=== PATIENT | male | born 1940 | race Caucasian/White ===

== ENCOUNTER 2018-03-22 19:26 | Inpatient (IN) | payer MEDICARE, BC ==
[2018-03-22] MEDS ORDERED: AZITHROMYCIN 500 MG in SODIUM CHLORIDE 0.9% 250 ML IVPB STA (20:18)
[2018-03-22] MEDS ORDERED: PNEUMONIA PROTOCOL UTILIZED 1 EACH MISC PO PRN (20:18)
--- NOTE | 2018-03-22 20:18 | ED ---
General Adult HPI - General Chief complaint: Shortness of Breath Stated complaint: sob Time Seen by Provider: 03/22/18 19:40 Source: patient, EMS, RN notes reviewed, old records reviewed Mode of arrival: EMS Limitations: no limitations - History of Present Illness Initial comments: This is a 77-year-old male the ER for evaluation. Patient accepted in transfer for evaluation regarding blood in stool, elevated INR, A. fib with RVR, and pneumonia. Patient is continued shortness of breath here in the emergency room. Denies any pain no chest pain. No acute distress. Patient's transfer from [facility] for inpatient admission - Related Data Home Medications Medication Instructions Recorded Confirmed Acarbose [Precose] 25 mg PO TID 03/22/18 03/22/18 Carvedilol [Coreg] 12.5 mg PO BID 03/22/18 03/22/18 Dorzolamide-Timolol 2%/0.5% 1 drop LEFT EYE BID 03/22/18 03/22/18 [dorzolamide-Timolol 2%/0.5%] Doxazosin Mesylate 2 mg PO HS 03/22/18 03/22/18 Ergocalciferol (Vitamin D2) 50,000 unit PO Q15D 03/22/18 03/22/18 [Vitamin D2] Ferrous Sulfate [Feosol] 325 mg PO DAILY 03/22/18 03/22/18 Furosemide [Lasix] 40 mg PO BID 03/22/18 03/22/18 Insulin Glargine [Lantus] 0 unit SQ HS 03/22/18 03/22/18 Latanoprost [Xalatan 0.005%] 1 drop BOTH EYES HS 03/22/18 03/22/18 Timolol 0.5% Ophth Soln [Timoptic 1 drop BOTH EYES BID 03/22/18 03/22/18 0.5% Ophth Soln] Warfarin Sodium [Coumadin] 5 mg PO HS 03/22/18 03/22/18 cloNIDine HCL [Catapres] 0.2 mg PO BID 03/22/18 03/22/18 glipiZIDE [Glucotrol] 10 mg PO AC-BID 03/22/18 03/22/18 hydrALAZINE HCL [Apresoline] 25 mg PO TID 03/22/18 03/22/18 Allergies Allergy/AdvReac Type Severity Reaction Status Date / Time No Known Allergies Allergy Verified 03/22/18 19:49 Review of Systems ROS Statement: Those systems with pertinent positive or pertinent negative responses have been documented in the HPI. ROS Other: All systems not noted in ROS Statement are negative. Past Medical History Past Medical History: Atrial Fibrillation, Heart Failure, Diabetes Mellitus, Hypertension Additional Past Medical History / Comment(s): cataract History of Any Multi-Drug Resistant Organisms: None Reported Past Surgical History: Tonsillectomy Additional Past Surgical History / Comment(s): colonoscopy Past Psychological History: No Psychological Hx Reported Smoking Status: Never smoker Past Alcohol Use History: Rare Past Drug Use History: None Reported General Exam Limitations: no limitations General appearance: alert, in no apparent distress Head exam: Present: atraumatic, normocephalic, normal inspection Eye exam: Present: normal appearance, PERRL, EOMI. Absent: scleral icterus, conjunctival injection, periorbital swelling ENT exam: Present: normal exam, mucous membranes moist Neck exam: Present: normal inspection. Absent: tenderness, meningismus, lymphadenopathy Respiratory exam: Present: normal lung sounds bilaterally. Absent: respiratory distress, wheezes, rales, rhonchi, stridor Cardiovascular Exam: Present: tachycardia, irregular rhythm, normal heart sounds. Absent: systolic murmur, diastolic murmur, rubs, gallop, clicks GI/Abdominal exam: Present: soft, normal bowel sounds. Absent: distended, tenderness, guarding, rebound, rigid Extremities exam: Present: normal inspection, full ROM, normal capillary refill. Absent: tenderness, pedal edema, joint swelling, calf tenderness Back exam: Present: normal inspection Neurological exam: Present: alert, oriented X3, CN II-XII intact Psychiatric exam: Present: normal affect, normal mood Skin exam: Present: warm, dry, intact, normal color. Absent: rash Course Vital Signs 03/22/18 19:32 Temperature 97.9 F Pulse Rate 112 H Respiratory 24 Rate Blood Pressure 147/106 O2 Sat by Pulse 97 Oximetry - Reevaluation(s) Reevaluation #1: 03/22/18 20:17 Transferring paperwork is thoroughly reviewed Medical Decision Making - Medical Decision Making 67 male the ER for evaluation. Patient is A. fib with RVR Coumadin anticoagulation, positive GI bleed, shortness of breath with cough and congestion, positive pneumonia Disposition Clinical Impression: Community acquired pneumonia, Coagulopathy, Coumadin toxicity, GIB ( gastrointestinal bleeding), Atrial fibrillation with RVR Disposition: ADMITTED IP TO THIS HOSP Condition: Fair Is patient prescribed a controlled substance at d/c from ED?: No Referrals: Ronald Malin MD [Primary Care Provider] - 1-2 days
[2018-03-22] MEDS ORDERED: DILTIAZEM 50 MG in SODIUM CHLORIDE 0.9% 40 ML IV ONE (20:20)
[2018-03-22] MEDS: SODIUM CHLORIDE 0.9% 1,000 ML IV SCH (20:59)
[2018-03-23] MEDS ORDERED: FUROSEMIDE 10 MG/ML 4 ML VIAL IV STA ×2 (00:32→16:25)
[2018-03-23] MEDS ORDERED: FUROSEMIDE 10 MG/ML 4 ML VIAL ONE (00:34)
[2018-03-23] MEDS ORDERED: IPRATROPIUM-ALBUTEROL 3 ML NEB INHALATION PRN (01:47)
[2018-03-23 06:26] LABS: Glucose,Whole Blood 124 mg/dL (75-99)
[2018-03-23 06:44] LABS: HGB 10.8 gm/dL (13.0-17.5); MCH 29.5 pg (25.0-35.0); MCHC 30.8 g/dL (31.0-37.0); MCV 95.9 fL (80.0-100.0); Platelet Count 128 k/uL (150-450); RBC 3.65 m/uL (4.30-5.90); RDW 14.2 % (11.5-15.5); WBC 7.3 k/uL (3.8-10.6)
[2018-03-23 06:51] LABS: INR 4.7 (<1.2); Prothrombin Time 42.5 sec (9.0-12.0)
[2018-03-23 06:57] LABS: Calcium 7.9 mg/dL (8.4-10.2); Magnesium 2.3 mg/dL (1.6-2.3); Potassium 3.5 mmol/L (3.5-5.1)
[2018-03-23] MEDS: SODIUM CHLORIDE 0.9% 1,000 ML IV SCH (07:42)
[2018-03-23] MEDS: INSULIN ASPART 100 UNIT/ML 1 ML 10 ML VIAL SQ SCH ×4 (07:42→21:10)
[2018-03-23] MEDS: IPRATROPIUM-ALBUTEROL 3 ML NEB INHALATION SCH ×4 (08:52→20:21)
[2018-03-23] MEDS ORDERED: cefTRIAXone IN SWFI 1,000 MG/10 ML SYRINGE IVP SCH (09:00)
[2018-03-23] MEDS ORDERED: AZITHROMYCIN 500 MG in SODIUM CHLORIDE 0.9% 250 ML IVPB SCH (09:00)
--- NOTE | 2018-03-23 11:34 | ECHOF ---
Referral Reason:LV FUNCTION MEASUREMENTS -------- HEIGHT: 175.3 cm WEIGHT: 131.5 kg BP: 154/107 RVIDd: 4.0 cm (< 3.3) IVSd: 1.5 cm (0.6 - 1.1) LVIDd: 4.9 cm (3.9 - 5.3) LVPWd: 1.4 cm (0.6 - 1.1) IVSs: 1.9 cm LVIDs: 4.1 cm LVPWs: 1.7 cm LA Diam: 4.2 cm (2.7 - 3.8) LAESV Index (A-L): 28.21 ml/m Ao Diam: 3.4 cm (2.0 - 3.7) AV Cusp: 2.2 cm (1.5 - 2.6) MV EXCURSION: 14.382 mm (> 18.000) MV EF SLOPE: 129 mm/s (70 - 150) EPSS: 1.4 cm RAP: 5.00 mmHg RVSP: 38.37 mmHg FINDINGS -------- This was a technically difficult study with suboptimal views. The left ventricular size is normal. There is moderate concentric left ventricular hypertrophy. O verall left ventricular systolic function is moderate-severely impaired with, an EF between 30 - 35 % . The right ventricle is moderately enlarged. The left atrium is mildly dilated. The right atrium is normal in size. 3 ml of Lumason was utilized for enhancement of images. There is mild aortic valve sclerosis. Mild mitral annular calcification present. Mild mitral regurgitation is present. Mild tricuspid regurgitation present. There is mild pulmonary hypertension. The right ventricular systolic pressure, as measured by Doppler, is 38.37mmHg. There is no pulmonic regurgitation present. The aortic root size is normal. Normal inferior vena cava with normal inspiratory collapse consistent with estimated right atrial pre ssure of 5 mmHg. The inferior vena cava is mildly dilated. There is no pericardial effusion. CONCLUSIONS -------- 1. This was a technically difficult study with suboptimal views. 2. The left ventricular size is normal. 3. There is moderate concentric left ventricular hypertrophy. 4. Overall left ventricular systolic function is moderate-severely impaired with, an EF between 30 - 35 %. 5. The right ventricle is moderately enlarged. 6. The left atrium is mildly dilated. 7. The right atrium is normal in size. 8. 3 ml of Lumason was utilized for enhancement of images. 9. There is mild aortic valve sclerosis. 10. Mild mitral annular calcification present. 11. Mild mitral regurgitation is present. 12. Mild tricuspid regurgitation present. 13. There is mild pulmonary hypertension. 14. The right ventricular systolic pressure, as measured by Doppler, is 38.37mmHg. 15. There is no pulmonic regurgitation present. 16. The aortic root size is normal. 17. Normal inferior vena cava with normal inspiratory collapse consistent with estimated right atrial pressure of 5 mmHg. 18. The inferior vena cava is mildly dilated. 19. There is no pericardial effusion. PODIATRIC MEDICINE PROFESSOR: Yenny Carrillo RDCS
[2018-03-23 11:37] LABS: Glucose,Whole Blood 108 mg/dL (75-99)
--- NOTE | 2018-03-23 12:06 | XR ---
EXAMINATION TYPE: XR chest 1V DATE OF EXAM: 03/23/2018 CLINICAL HISTORY: CHF and pneumonia progress study. TECHNIQUE: Single AP portable frontal view of the chest is obtained. COMPARISON: Outside Chest x-ray from one day earlier and older study May 01, 2010. FINDINGS: There is redemonstration of mild cardiomegaly with suspected mild central vascular congest ion. There is poor visualization of left hemidiaphragm suggesting atelectasis and/or infiltrate at th is level. No pneumothorax is seen. Suspect tiny bilateral pleural effusions. There is atherosclerotic and ectatic thoracic aorta identified. Osseous structures are demineralized. IMPRESSION: Overall stable findings, cardiomegaly with mild central vascular congestion and likely tiny bilateral pleural effusions with patchy left basilar atelectasis and/or infiltrate all redemonst rated.
[2018-03-23 14:44] LABS: Hemoglobin A1C 8.5 % (4.0-6.0)
--- NOTE | 2018-03-23 14:56 | P.CRDCN ---
History of Present Illness Consult date: 03/23/18 Requesting physician: Rachell Perera Consult reason: atrial fibrillation History of present illness: This is a 77-year-old gentleman who follows with Dr. Jain in the office. He was transferred here for [facility], apparently the patient presented there with symptoms of shortness of breath with persistent productive cough. He has a known history of chronic persistent atrial fibrillation on Coumadin for anticoagulation, diabetes, hypertension, lipidemia, patient there was noted to be in atrial fibrillation with rapid ventricular response, he was started on a Cardizem drip and transferred here. His INR was also noted to be significantly elevated. Chest x-ray suggested a left lower lobe pneumonia. White blood cell count 8.6, hemoglobin 11.5, platelet count 102, sodium 137, potassium 3.7, BUN 58, creatinine 3.7. INR 5.2 these were the labs that were drawn at [facility]. EKG on arrival here showed atrial fibrillation with a rapid ventricular response. Hemoglobin here 10.8, platelet count 128. INR 4.7, sodium 143, potassium 3.5, BUN 55, creatinine 3.8. Magnesium level II.3, BNP 29 ,100. Influenza A and B were negative. Blood pressure 132/90 with a heart rate in the low 1 teens. 99% on room air. Chest x-ray on arrival here showed a overall stable findings, cardiomegaly with mild central vascular congestion and likely tiny bilateral pleural effusions. A cardiogram with Doppler study was performed which revealed an ejection fraction of 30-35%. According to Dr. Ennis's office note, echo performed in 2016 reported to have a normal left ventricular systolic function. Past Medical History Past Medical History: Atrial Fibrillation, Heart Failure, Diabetes Mellitus, Hypertension Additional Past Medical History / Comment(s): cataract History of Any Multi-Drug Resistant Organisms: None Reported Past Surgical History: Tonsillectomy Additional Past Surgical History / Comment(s): colonoscopy, skin ca Past Anesthesia/Blood Transfusion Reactions: No Reported Reaction Past Psychological History: No Psychological Hx Reported Smoking Status: Never smoker Past Alcohol Use History: Rare Past Drug Use History: None Reported - Past Family History Father Family Medical History: Cancer Additional Family Medical History / Comment(s): lung Mother Family Medical History: Cancer Additional Family Medical History / Comment(s): ovarian Medications and Allergies Home Medications Medication Instructions Recorded Confirmed Type Acarbose [Precose] 25 mg PO TID 03/22/18 03/22/18 History Carvedilol [Coreg] 12.5 mg PO BID 03/22/18 03/22/18 History Dorzolamide-Timolol 2%/0.5% 1 drop LEFT EYE BID 03/22/18 03/22/18 History [dorzolamide-Timolol 2%/0.5%] Doxazosin Mesylate 2 mg PO HS 03/22/18 03/22/18 History Ergocalciferol (Vitamin D2) 50,000 unit PO Q15D 03/22/18 03/22/18 History [Vitamin D2] Ferrous Sulfate [Feosol] 325 mg PO DAILY 03/22/18 03/22/18 History Furosemide [Lasix] 40 mg PO BID 03/22/18 03/22/18 History Insulin Glargine [Lantus] 0 unit SQ HS 03/22/18 03/22/18 History Latanoprost [Xalatan 0.005%] 1 drop BOTH EYES HS 03/22/18 03/22/18 History Timolol 0.5% Ophth Soln [Timoptic 1 drop BOTH EYES BID 03/22/18 03/22/18 History 0.5% Ophth Soln] Warfarin Sodium [Coumadin] 5 mg PO HS 03/22/18 03/22/18 History cloNIDine HCL [Catapres] 0.2 mg PO BID 03/22/18 03/22/18 History glipiZIDE [Glucotrol] 10 mg PO AC-BID 03/22/18 03/22/18 History hydrALAZINE HCL [Apresoline] 25 mg PO TID 03/22/18 03/22/18 History Allergies Allergy/AdvReac Type Severity Reaction Status Date / Time No Known Allergies Allergy Verified 03/22/18 19:49 Physical Exam Vitals: Vital Signs Temp Pulse Pulse Resp BP BP Pulse Ox 03/23/18 12:12 88 03/23/18 12:02 84 03/23/18 11:01 97.7 F 117 H 20 133/82 99 03/23/18 09:10 88 03/23/18 08:57 80 98 03/23/18 08:31 98.3 F 83 22 125/79 98 03/23/18 08:00 83 22 03/23/18 04:00 96.8 F L 88 24 154/107 98 03/23/18 01:10 97.7 F 111 H 24 130/81 96 03/22/18 22:59 98.5 F 03/22/18 22:33 105 H 18 117/71 98 03/22/18 21:31 110 H 20 151/99 99 03/22/18 21:03 98.3 F 136/87 03/22/18 21:02 20 03/22/18 21:01 105 H 20 147/104 97 03/22/18 20:57 97.7 F 111 H 24 130/81 96 03/22/18 19:32 97.9 F 112 H 24 147/106 97 Intake and Output 03/22/18 03/23/18 03/23/18 22:59 06:59 14:59 Other: Voiding Method Urinal Urinal Weight 131.542 kg 135 kg 135 kg PHYSICAL EXAMINATION: HEENT: Head is atraumatic, normocephalic. Pupils equal, round. Neck is supple. There is elevated jugular venous pressure. HEART EXAMINATION: Heart S1 and S2 irregularly irregular CHEST EXAMINATION: Lungs reveal diminished air entry to bilateral bases with rales noted to bilateral bases as well. ABDOMEN: Soft, nontender. Bowel sounds are heard. No organomegaly noted. EXTREMITIES: 2+ peripheral pulses with evidence of peripheral edema and no calf tenderness noted. NEUROLOGIC patient is awake, alert and oriented -3. . Results 03/23/18 05:36 03/23/18 05:36 Coagulation 03/23/18 Range/Units 05:36 PT 42.5 H (9.0-12.0) sec CBC 03/23/18 Range/Units 05:36 WBC 7.3 (3.8-10.6) k/uL RBC 3.65 L (4.30-5.90) m/uL Hgb 10.8 L (13.0-17.5) gm/dL Hct 35.0 L (39.0-53.0) % Plt Count 128 L (150-450) k/uL Comprehensive Metabolic Panel 03/23/18 Range/Units 05:36 Sodium 143 (137-145) mmol/L Potassium 3.5 (3.5-5.1) mmol/L Chloride 110 H (98-107) mmol/L Carbon Dioxide 18 L (22-30) mmol/L BUN 55 H (9-20) mg/dL Creatinine 3.80 H (0.66-1.25) mg/dL Glucose 118 H (74-99) mg/dL Calcium 7.9 L (8.4-10.2) mg/dL Current Medications Generic Name Dose Route Start Last Admin Trade Name Freq PRN Reason Stop Dose Admin Albuterol/Ipratropium 3 ml 03/23/18 08:00 03/23/18 12:02 Duoneb 0.5 Mg-3 Mg/3 Ml Soln INHALATION 3 ml RT-QID ALBA Administration Albuterol/Ipratropium 3 ml 03/23/18 01:47 Duoneb 0.5 Mg-3 Mg/3 Ml Soln INHALATION RT-Q2H PRN Shortness Of Breath Or Wheezing Carvedilol 25 mg 03/23/18 17:30 Coreg PO AC-BID [facility] Ceftriaxone Sodium 1,000 mg 03/24/18 09:00 Rocephin IVP Q24HR [facility] Dorzolamide/Timolol 1 drops 03/23/18 21:00 Cosopt LEFT EYE BID [facility] Doxazosin Mesylate 2 mg 03/23/18 21:00 Cardura PO HS [facility] Ferrous Sulfate 325 mg 03/24/18 09:00 Feosol PO DAILY [facility] Hydralazine HCl 25 mg 03/23/18 16:00 Apresoline PO TID [facility] Insulin Aspart 0 unit 03/23/18 07:30 03/23/18 12:13 Novolog SQ Not Given ACHS [facility] Protocol Latanoprost 1 drops 03/23/18 21:00 Xalatan 0.005% BOTH EYES [facility] Miscellaneous Information 1 each 03/22/18 20:18 Pneumonia Protocol Utilized PO ONCE PRN Per Protocol Timolol Maleate 1 drops 03/23/18 21:00 Timoptic BOTH EYES BID [facility] Intake and Output 03/22/18 03/23/18 03/23/18 22:59 06:59 14:59 Other: Voiding Method Urinal Urinal Weight 131.542 kg 135 kg 135 kg Patient Weight 03/24/18 06:59 Weight 135 kg 03/23/18 05:36 03/23/18 05:36 EKG Interpretations (text) EKG shows atrial fibrillation with a rapid ventricular response. Assessment and Plan Plan: Assessment and plan #1 symptoms of progressively worsening shortness of breath, productive cough of yellow sputum. Combination of possible bronchitis/pneumonia and congestive heart failure, systolic acute on chronic. BNP level 29,100. Influenza A and B- . #2 atrial fibrillation with a rapid ventricular response #3 history of chronic persistent atrial fibrillation on Coumadin for anticoagulation #4 elevated INR, 4.7 on arrival here. Coumadin on hold #5 acute on chronic renal insufficiency, creatinine 3.8. #6 diabetes #7 hypertension #8 hyperlipidemia Plan We will start the patient on 40 mg of IV Lasix twice a day, discontinue Cardizem drip as the LV function is noted to be reduced. We will discontinue the Coreg and start the patient on metoprolol for more optimal heart rate control. We will hold off on any addition of angiotensin jose at this time or DYLAN inhibitor because of the renal function. Optimize rate control, diuresis the patient, check lytes BUN and creatinine in the morning. We will also check to see if patient has coverage for one of the newer anti-coagulants so he can come off of the Coumadin. Further recommendations to follow. DNP note has been reviewed, I agree with a documented findings and plan of care. Patient was seen and examined.
[2018-03-23] MEDS ORDERED: FUROSEMIDE 10 MG/ML 4 ML VIAL IV SCH (15:00)
--- NOTE | 2018-03-23 15:42 | CONS ---
CONSULTATION REASON FOR CONSULT: Renal failure. HISTORY OF PRESENT ILLNESS: The patient is a 77-year-old male who has chronic kidney disease and follows with a lpn care manager out of [place], Dr. Jarrod Vargas. The patient believes he is at stage IV to stage V. He is not aware of his baseline renal function. He states he was admitted to the hospital with shortness of breath. He was found to be in atrial fibrillation with RVR. Serum creatinine is 3.8 mg/dL. We do not have any previous labs for comparison. His GFR is 70 . The patient denies use of any nonsteroidal anti- inflammatory agents prior to admission. He states he has had good urine output. He has been voiding in the urinal. No fevers, chills, nausea, vomiting. No abdominal pain. PAST MEDICAL HISTORY: Chronic kidney disease, hypertension, type 2 diabetes, coronary artery disease, history of atrial fibrillation. PAST SURGICAL HISTORY: Tonsillectomy, colonoscopy, cataract surgery. SOCIAL HISTORY: Negative for smoking, drug abuse or alcohol abuse. ALLERGIES: None. MEDICATIONS: Medications at home included acarbose, Coreg, vitamin D, iron, Lasix, insulin, Coumadin, clonidine, Glucotrol, hydralazine. REVIEW OF SYSTEMS: As per HPI. Other systems negative. PHYSICAL EXAMINATION: Patient is comfortable, awake, alert, oriented x3, not in any acute distress. Blood pressure is 133/82, heart rate 84 per minute. He is afebrile. Examination of the heart: S1, S2. Examination lungs: Bilateral breath sounds are heard. Abdomen is soft, obese, nontender. Exam of the lower extremity shows edema 1+ bilaterally. [employer]ING [employer]S SUPERVISOR exam is grossly intact. LAB: Show sodium 140, potassium 3.5, chloride 110, CO2 is 18, BUN 55, serum creatinine 3.8, hemoglobin 10.8 g/dL. ASSESSMENT: 1. Chronic kidney disease, NKF stage IV to V according to the patient. He follows with a lpn care manager in [place]. We do not have his baseline renal function available at this time. 2. Atrial fibrillation with RVR. Heart rate about 117 per minute currently, the patient is feeling better. 3. Possible pneumonia status post antibiotics. Currently maintained on Rocephin. 4. Hypertension. Blood pressure is fairly well controlled. 5. Metabolic acidosis secondary to renal failure. 6. Mild volume overload. PLAN: Continue off of IV fluids. Repeat labs in a.m. We will try to obtain baseline renal function. Currently patient is not on any nephrotoxic agents. May continue with the Rocephin for now. The patient has already received IV Lasix x1. We can repeat the IV diuretics tomorrow if his respiratory status worsens. The patient was maintained on 40 mg p.o. b.i.d. at home and we can resume that tomorrow. Plan to continue off of IV fluids. Continue current antihypertensive medications. Add sodium bicarb. Resume oral Lasix. Patient will need to follow up as outpatient with his lpn care manager out of [place]. Thank you for this consultation. We will continue to follow the patient with you during his hospitalization. ELENI / GAIL: [id number] /
[2018-03-23] MEDS ORDERED: METOPROLOL TARTRATE 50 MG TAB PO STA (16:13)
--- NOTE | 2018-03-23 16:19 | P.HPIM ---
History of Present Illness 77-year-old gentleman transferred here for [facility], apparently the patient presented there with symptoms of shortness of breath with persistent productive cough with yellow sputum production, patient does have a orthopnea and denied any significant history of paroxysmal nocturnal dyspnea. He has a known history of chronic persistent atrial fibrillation on Coumadin for anticoagulation, was noted to be in atrial fibrillation with rapid ventricular response, he was started on a Cardizem drip and transferred here. Patient chest x-ray is suspicious for pneumonia or pulmonary edema I reviewed the chest x-ray I believe patient has pulmonary edema rather pneumonia with suspicion is low for pneumonia. Patient doesn't have any leukocytosis denied any fever, patient clinically does not appear to have pneumonia and medics will be discontinued. Patient's INR is supratherapeutic. Patient had ejection fraction of 30-35%. Patient was started on Lasix dose of which need to be increased because of poor renal function patient appears to have chronic kidney disease stage 4-5. Patient shortness of breath actually improved since yesterday. Review of Systems REVIEW OF SYSTEMS: CONSTITUTIONAL: No fever, no malaise, no fatigue. HEENT: No recent visual problems or hearing problems. Denied any sore throat. CARDIOVASCULAR: No chest pain. PULMONARY: no hemoptysis. GASTROINTESTINAL: No diarrhea, no nausea, no vomiting, no abdominal pain. Normoactive bowel sounds. NEUROLOGICAL: No headaches, no weakness, no numbness. HEMATOLOGICAL: Denies any bleeding or petechiae. GENITOURINARY: Denies any burning micturition, frequency, or urgency. MUSCULOSKELETAL/RHEUMATOLOGICAL: Denies any joint pain, swelling, or any muscle pain. ENDOCRINE: Denies any polyuria or polydipsia. The rest of the 14-point review of systems is negative. Past Medical History Past Medical History: Atrial Fibrillation, Heart Failure, Diabetes Mellitus, Hypertension Additional Past Medical History / Comment(s): cataract History of Any Multi-Drug Resistant Organisms: None Reported Past Surgical History: Tonsillectomy Additional Past Surgical History / Comment(s): colonoscopy, skin ca Past Anesthesia/Blood Transfusion Reactions: No Reported Reaction Past Psychological History: No Psychological Hx Reported Smoking Status: Never smoker Past Alcohol Use History: Rare Past Drug Use History: None Reported - Past Family History Father Family Medical History: Cancer Additional Family Medical History / Comment(s): lung Mother Family Medical History: Cancer Additional Family Medical History / Comment(s): ovarian Medications and Allergies Home Medications Medication Instructions Recorded Confirmed Type Acarbose [Precose] 25 mg PO TID 03/22/18 03/22/18 History Carvedilol [Coreg] 12.5 mg PO BID 03/22/18 03/22/18 History Dorzolamide-Timolol 2%/0.5% 1 drop LEFT EYE BID 03/22/18 03/22/18 History [dorzolamide-Timolol 2%/0.5%] Doxazosin Mesylate 2 mg PO HS 03/22/18 03/22/18 History Ergocalciferol (Vitamin D2) 50,000 unit PO Q15D 03/22/18 03/22/18 History [Vitamin D2] Ferrous Sulfate [Feosol] 325 mg PO DAILY 03/22/18 03/22/18 History Furosemide [Lasix] 40 mg PO BID 03/22/18 03/22/18 History Insulin Glargine [Lantus] 0 unit SQ HS 03/22/18 03/22/18 History Latanoprost [Xalatan 0.005%] 1 drop BOTH EYES HS 03/22/18 03/22/18 History Timolol 0.5% Ophth Soln [Timoptic 1 drop BOTH EYES BID 03/22/18 03/22/18 History 0.5% Ophth Soln] Warfarin Sodium [Coumadin] 5 mg PO HS 03/22/18 03/22/18 History cloNIDine HCL [Catapres] 0.2 mg PO BID 03/22/18 03/22/18 History glipiZIDE [Glucotrol] 10 mg PO AC-BID 03/22/18 03/22/18 History hydrALAZINE HCL [Apresoline] 25 mg PO TID 03/22/18 03/22/18 History Allergies Allergy/AdvReac Type Severity Reaction Status Date / Time No Known Allergies Allergy Verified 03/22/18 19:49 Physical Exam Vitals: Vital Signs Temp Pulse Pulse Resp BP BP Pulse Ox 03/23/18 15:47 96.9 F L 104 H 20 130/68 99 03/23/18 12:12 88 03/23/18 12:02 84 03/23/18 11:01 97.7 F 117 H 20 133/82 99 03/23/18 09:10 88 03/23/18 08:57 80 98 03/23/18 08:31 98.3 F 83 22 125/79 98 03/23/18 08:00 83 22 03/23/18 04:00 96.8 F L 88 24 154/107 98 03/23/18 01:10 97.7 F 111 H 24 130/81 96 03/22/18 22:59 98.5 F 03/22/18 22:33 105 H 18 117/71 98 03/22/18 21:31 110 H 20 151/99 99 03/22/18 21:03 98.3 F 136/87 03/22/18 21:02 20 03/22/18 21:01 105 H 20 147/104 97 03/22/18 20:57 97.7 F 111 H 24 130/81 96 03/22/18 19:32 97.9 F 112 H 24 147/106 97 Intake and Output 03/23/18 03/23/18 03/23/18 06:59 14:59 22:59 Intake Total 420 Balance 420 Intake: Oral 420 Other: Voiding Method Urinal Urinal # Voids 1 Weight 135 kg 135 kg PHYSICAL EXAMINATION: GENERAL: The patient is alert and oriented x3, not in any acute distress. Well developed, well nourished. HEENT: Pupils are round and equally reacting to light. EOMI. No scleral icterus. No conjunctival pallor. Normocephalic, atraumatic. No pharyngeal erythema. No thyromegaly. CARDIOVASCULAR: S1 and S2 present. No murmurs. There is S3, elevated JVD and irregularly irregular rhythm PULMONARY: Chest is clear to auscultation, no wheezing or crackles. ABDOMEN: Soft, nontender, nondistended, normoactive bowel sounds. No palpable organomegaly. MUSCULOSKELETAL: No joint swelling or deformity. EXTREMITIES: No cyanosis, clubbing, does have pitting pedal edema. NEUROLOGICAL: Gross neurological examination did not reveal any focal deficits. SKIN: No rashes. Results CBC & Chem 7: 03/23/18 05:36 03/23/18 05:36 Labs: Abnormal Lab Results - Last 24 Hours (Table) 03/23/18 03/23/18 03/23/18 Range/Units 05:36 05:36 05:36 RBC 3.65 L (4.30-5.90) m/uL Hgb 10.8 L (13.0-17.5) gm/dL Hct 35.0 L (39.0-53.0) % MCHC 30.8 L (31.0-37.0) g/dL Plt Count 128 L (150-450) k/uL PT 42.5 H (9.0-12.0) sec INR 4.7 H (<1.2) Chloride 110 H (98-107) mmol/L Carbon Dioxide 18 L (22-30) mmol/L BUN 55 H (9-20) mg/dL Creatinine 3.80 H (0.66-1.25) mg/dL Glucose 118 H (74-99) mg/dL POC Glucose (mg/dL) (75-99) mg/dL Hemoglobin A1c (4.0-6.0) % Calcium 7.9 L (8.4-10.2) mg/dL 03/23/18 03/23/18 03/23/18 Range/Units 05:36 06:24 11:35 RBC (4.30-5.90) m/uL Hgb (13.0-17.5) gm/dL Hct (39.0-53.0) % MCHC (31.0-37.0) g/dL Plt Count (150-450) k/uL PT (9.0-12.0) sec INR (<1.2) Chloride (98-107) mmol/L Carbon Dioxide (22-30) mmol/L BUN (9-20) mg/dL Creatinine (0.66-1.25) mg/dL Glucose (74-99) mg/dL POC Glucose (mg/dL) 124 H 108 H (75-99) mg/dL Hemoglobin A1c 8.5 H (4.0-6.0) % Calcium (8.4-10.2) mg/dL Thrombosis Risk Factor Assmnt - Choose All That Apply Any of the Below Risk Factors Present?: No Each Risk Factor Represents 3 Points: Age 75 years or older Thrombosis Risk Factor Assessment Total Risk Factor Score: 3 Thrombosis Risk Factor Assessment Level: Moderate Risk Assessment and Plan Plan: -We'll start failure chronic systolic dysfunction with acute exacerbation leading to acute hypoxic respiratory failure and patient is on 3 to solids and now patient was started on IV Lasix, repeat basic metabolic profile tomorrow. 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 -elevated INR hold of Coumadin -Type 2 diabetes mellitus patient will be resumed on home regimen titrate as needed -Hypertension -Hyperlipidemia
[2018-03-23] MEDS: hydrALAZINE HCL 25 MG TAB PO SCH ×2 (16:20→21:10)
[2018-03-23 16:32] LABS: Glucose,Whole Blood 257 mg/dL (75-99)
[2018-03-23] MEDS: ACETAMINOPHEN TAB 325 MG TAB PO PRN ×2 (17:04→22:28)
[2018-03-23] MEDS ORDERED: CARVEDILOL 12.5 MG TAB PO SCH (17:30)
[2018-03-23 20:54] LABS: Glucose,Whole Blood 228 mg/dL (75-99)
[2018-03-23] MEDS: SODIUM BICARBONATE TAB 650 MG TAB PO SCH (21:09)
[2018-03-23] MEDS: FUROSEMIDE 10 MG/ML 10 ML VIAL IV SCH (21:10)
[2018-03-23] MEDS: DOXAZOSIN 2 MG TAB PO SCH (21:10)
[2018-03-23] MEDS: METOPROLOL TARTRATE 50 MG TAB PO SCH (21:10)
[2018-03-23] MEDS: LATANOPROST 0.005% OPHTH DROPS 2.5 ML BTL BOTH EYES SCH (21:12)
[2018-03-23] MEDS: DORZOLAMIDE-TIMOLOL 2-0.5% DROPS 10 ML BTL LEFT EYE SCH (21:12)
[2018-03-23] MEDS: TIMOLOL 0.5% OPHTH DROPS 5 ML BTL BOTH EYES SCH (21:12)
[2018-03-24 06:04] LABS: Glucose,Whole Blood 114 mg/dL (75-99)
[2018-03-24] MEDS: INSULIN ASPART 100 UNIT/ML 1 ML 10 ML VIAL SQ SCH ×4 (06:34→21:12)
[2018-03-24] MEDS: IPRATROPIUM-ALBUTEROL 3 ML NEB INHALATION SCH ×4 (06:56→19:42)
[2018-03-24] MEDS: ACETAMINOPHEN TAB 325 MG TAB PO PRN (07:00)
[2018-03-24 07:03] LABS: HCT 36.1 % (39.0-53.0); HGB 10.8 gm/dL (13.0-17.5); Hypochromasia Slight; MCH 29.3 pg (25.0-35.0); MCHC 29.8 g/dL (31.0-37.0); MCV 98.3 fL (80.0-100.0); Mean Platelet Volume 7.7; Platelet Count 136 k/uL (150-450); RBC 3.67 m/uL (4.30-5.90); RDW 14.1 % (11.5-15.5); WBC 7.5 k/uL (3.8-10.6)
[2018-03-24 07:14] LABS: INR 4.8 (<1.2); Prothrombin Time 43.3 sec (9.0-12.0)
[2018-03-24 07:22] LABS: Calcium 8.1 mg/dL (8.4-10.2); Potassium 3.7 mmol/L (3.5-5.1)
[2018-03-24] MEDS ORDERED: cefTRIAXone IN SWFI 1,000 MG/10 ML SYRINGE IVP SCH (09:00)
[2018-03-24] MEDS: DORZOLAMIDE-TIMOLOL 2-0.5% DROPS 10 ML BTL LEFT EYE SCH ×2 (09:51→19:56)
[2018-03-24] MEDS: hydrALAZINE HCL 25 MG TAB PO SCH ×3 (09:52→21:12)
[2018-03-24] MEDS: SODIUM BICARBONATE TAB 650 MG TAB PO SCH ×2 (09:52→19:59)
[2018-03-24] MEDS: METOPROLOL TARTRATE 50 MG TAB PO SCH (09:52)
[2018-03-24] MEDS: TIMOLOL 0.5% OPHTH DROPS 5 ML BTL BOTH EYES SCH ×2 (09:53→19:59)
[2018-03-24] MEDS: FUROSEMIDE 10 MG/ML 10 ML VIAL IV SCH ×2 (09:54→19:58)
[2018-03-24] MEDS: FERROUS SULFATE 325 MG TAB PO SCH (09:55)
[2018-03-24] MEDS ORDERED: METOPROLOL TARTRATE 25 MG TAB PO ONE (11:30)
[2018-03-24 11:33] LABS: Glucose,Whole Blood 259 mg/dL (75-99)
--- NOTE | 2018-03-24 11:35 | P.PN ---
Subjective Patient was admitted to the with the can start failure chronic systolic dysfunction with acute exacerbation patient did not urinate increasing dose of Lasix 80 twice a day will will do bladder scan. Patient does have chronic kidney disease stage V nephrology valid the patient and cardiology evaluated the patient. Constitutional: Denied any fatigue denied any fever. Cardio vascular: denied any chest pain, palpitations Gastrointestinal denied any nausea vomiting Pulmonary: Denied any shortness of breath cough Neurologic denied any new focal deficits Objective - Vital Signs Vital signs: Vital Signs Temp 97.7 F 03/24/18 10:27 Pulse 108 H 03/24/18 11:09 Resp 20 03/24/18 10:27 BP 153/102 03/24/18 10:27 Pulse Ox 99 03/24/18 06:56 Intake & Output 03/23/18 03/24/18 03/24/18 18:59 06:59 18:59 Intake Total 900 120 Balance 900 120 Weight 135 kg 137 kg Intake: Oral 900 120 Other: Voiding Method Urinal Urinal Urinal # Voids 1 2 # Bowel Movements 1 - Exam PHYSICAL EXAMINATION: GENERAL: The patient is alert and oriented x3, not in any acute distress. Believe these HEENT: Pupils are round and equally reacting to light. EOMI. No scleral icterus. No conjunctival pallor. Normocephalic, atraumatic. No pharyngeal erythema. No thyromegaly. CARDIOVASCULAR: S1 and S2 present. No murmurs. There is S3, elevated JVD and irregularly irregular rhythm PULMONARY: Patient has good air entry but the diffuse bilateral crackles ABDOMEN: Soft, nontender, nondistended, normoactive bowel sounds. No palpable organomegaly. MUSCULOSKELETAL: No joint swelling or deformity. EXTREMITIES: No cyanosis, clubbing, does have pitting pedal edema. NEUROLOGICAL: Gross neurological examination did not reveal any focal deficits. SKIN: No rashes. - Labs CBC & Chem 7: 03/24/18 06:09 03/24/18 06:09 Labs: Abnormal Lab Results - Last 24 Hours (Table) 03/23/18 03/23/18 03/23/18 Range/Units 05:36 11:35 16:29 RBC (4.30-5.90) m/uL Hgb (13.0-17.5) gm/dL Hct (39.0-53.0) % MCHC (31.0-37.0) g/dL Plt Count (150-450) k/uL PT (9.0-12.0) sec INR (<1.2) Chloride (98-107) mmol/L Carbon Dioxide (22-30) mmol/L BUN (9-20) mg/dL Creatinine (0.66-1.25) mg/dL Glucose (74-99) mg/dL POC Glucose (mg/dL) 108 H 257 H (75-99) mg/dL Hemoglobin A1c 8.5 H (4.0-6.0) % Calcium (8.4-10.2) mg/dL 03/23/18 03/24/18 03/24/18 Range/Units 20:52 06:01 06:09 RBC 3.67 L (4.30-5.90) m/uL Hgb 10.8 L (13.0-17.5) gm/dL Hct 36.1 L (39.0-53.0) % MCHC 29.8 L (31.0-37.0) g/dL Plt Count 136 L (150-450) k/uL PT (9.0-12.0) sec INR (<1.2) Chloride (98-107) mmol/L Carbon Dioxide (22-30) mmol/L BUN (9-20) mg/dL Creatinine (0.66-1.25) mg/dL Glucose (74-99) mg/dL POC Glucose (mg/dL) 228 H 114 H (75-99) mg/dL Hemoglobin A1c (4.0-6.0) % Calcium (8.4-10.2) mg/dL 03/24/18 03/24/18 03/24/18 Range/Units 06:09 06:09 11:31 RBC (4.30-5.90) m/uL Hgb (13.0-17.5) gm/dL Hct (39.0-53.0) % MCHC (31.0-37.0) g/dL Plt Count (150-450) k/uL PT 43.3 H (9.0-12.0) sec INR 4.8 H (<1.2) Chloride 109 H (98-107) mmol/L Carbon Dioxide 15 L (22-30) mmol/L BUN 58 H (9-20) mg/dL Creatinine 3.90 H (0.66-1.25) mg/dL Glucose 111 H (74-99) mg/dL POC Glucose (mg/dL) 259 H (75-99) mg/dL Hemoglobin A1c (4.0-6.0) % Calcium 8.1 L (8.4-10.2) mg/dL Microbiology - Last 24 Hours (Table) 03/23/18 05:36 Blood Culture - Preliminary Blood No Growth after 24 hours Assessment and Plan Plan: -Congestive heart failure chronic systolic dysfunction with acute exacerbation leading to acute hypoxic respiratory failure is low 6 dose was increased we'll do a bladder scan -Anuria: We'll order bladder scan most probably related to congestive heart failure exacerbation along with chronic kidney disease stage V -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 -elevated INR hold of Coumadin -Type 2 diabetes mellitus patient will be resumed on home regimen titrate as needed -Hypertension -Hyperlipidemia
--- NOTE | 2018-03-24 15:07 | XR ---
EXAMINATION TYPE: XR chest 1V DATE OF EXAM: 03/24/2018 COMPARISON: 03/23/2018 HISTORY: Congestive heart failure TECHNIQUE: Single frontal view of the chest is obtained. FINDINGS: Cardiomegaly is redemonstrated. Ulnar vascular congestion has nearly resolved in the inter im. Retrocardiac density remains. Blunting of the costophrenic angles may partially relate to copious overlying soft tissues. Mild multilevel degenerative changes of the thoracic spine and acromioclavic ular joints are noted. IMPRESSION: Near complete resolution the previously seen mild pulmonary vascular congestion. Left ba silar retrocardiac opacity remains and may represent confluent edema, atelectasis or less likely pneu monia.
--- NOTE | 2018-03-24 15:46 | P.PN ---
Subjective Progress Note Date: 03/24/18 This is a 77-year-old gentleman who follows with Dr. Jain in the office. He was transferred here for [facility], apparently the patient presented there with symptoms of shortness of breath with persistent productive cough. He has a known history of chronic persistent atrial fibrillation on Coumadin for anticoagulation, diabetes, hypertension, lipidemia, patient there was noted to be in atrial fibrillation with rapid ventricular response, he was started on a Cardizem drip and transferred here. His INR was also noted to be significantly elevated. Chest x-ray suggested a left lower lobe pneumonia. White blood cell count 8.6, hemoglobin 11.5, platelet count 102, sodium 137, potassium 3.7, BUN 58, creatinine 3.7. INR 5.2 these were the labs that were drawn at [facility]. EKG on arrival here showed atrial fibrillation with a rapid ventricular response. Hemoglobin here 10.8, platelet count 128. INR 4.7, sodium 143, potassium 3.5, BUN 55, creatinine 3.8. Magnesium level II.3, BNP 29 ,100. Influenza A and B were negative. Blood pressure 132/90 with a heart rate in the low 1 teens. 99% on room air. Chest x-ray on arrival here showed a overall stable findings, cardiomegaly with mild central vascular congestion and likely tiny bilateral pleural effusions. A cardiogram with Doppler study was performed which revealed an ejection fraction of 30-35%. According to Dr. Jain's office note, echo performed in 2015 reported to have a normal left ventricular systolic function. 03/24/2018 Patient was seen and examined this morning, feeling better overall, continues to have productive cough of yellow sputum. Documentation of intake and output has not been accurate. His weight is documented to be up today, however patient states he is putting out urine from the IV Lasix. He continues to be on IV Lasix at this time. INR today 4.8, hemoglobin 10.8, sodium 141, potassium 3.7, BUN 58, creatinine 3.9. We would recommend to continue the patient on his current dose of IV Lasix, try to maintain accurate intake and output as well as daily weight. Hold Coumadin today Objective - Vital Signs Vital signs: Vital Signs Temp 97.8 F 03/24/18 11:30 Pulse 102 H 03/24/18 15:24 Resp 18 03/24/18 11:30 BP 144/80 03/24/18 11:30 Pulse Ox 99 03/24/18 06:56 Intake & Output 03/23/18 03/24/18 03/24/18 18:59 06:59 18:59 Intake Total 900 120 Output Total 100 Balance 900 20 Weight 135 kg 137 kg Intake: Oral 900 120 Output: Post Void Residual 100 Other: Voiding Method Urinal Urinal Urinal # Voids 1 2 # Bowel Movements 1 1 - Exam PHYSICAL EXAMINATION: HEENT: Head is atraumatic, normocephalic. Pupils equal, round. Neck is supple. There is elevated jugular venous pressure. HEART EXAMINATION: Heart S1 and S2 irregularly irregular CHEST EXAMINATION: Lungs reveal diminished air entry to bilateral bases with rales noted to bilateral bases as well. ABDOMEN: Soft, nontender. Bowel sounds are heard. No organomegaly noted. EXTREMITIES: 2+ peripheral pulses with evidence of peripheral edema and no calf tenderness noted. NEUROLOGIC patient is awake, alert and oriented -3. - Labs CBC & Chem 7: 03/24/18 06:09 03/24/18 06:09 Labs: Abnormal Lab Results - Last 24 Hours (Table) 03/23/18 03/23/18 03/24/18 Range/Units 16:29 20:52 06:01 RBC (4.30-5.90) m/uL Hgb (13.0-17.5) gm/dL Hct (39.0-53.0) % MCHC (31.0-37.0) g/dL Plt Count (150-450) k/uL PT (9.0-12.0) sec INR (<1.2) Chloride (98-107) mmol/L Carbon Dioxide (22-30) mmol/L BUN (9-20) mg/dL Creatinine (0.66-1.25) mg/dL Glucose (74-99) mg/dL POC Glucose (mg/dL) 257 H 228 H 114 H (75-99) mg/dL Calcium (8.4-10.2) mg/dL 03/24/18 03/24/18 03/24/18 Range/Units 06:09 06:09 06:09 RBC 3.67 L (4.30-5.90) m/uL Hgb 10.8 L (13.0-17.5) gm/dL Hct 36.1 L (39.0-53.0) % MCHC 29.8 L (31.0-37.0) g/dL Plt Count 136 L (150-450) k/uL PT 43.3 H (9.0-12.0) sec INR 4.8 H (<1.2) Chloride 109 H (98-107) mmol/L Carbon Dioxide 15 L (22-30) mmol/L BUN 58 H (9-20) mg/dL Creatinine 3.90 H (0.66-1.25) mg/dL Glucose 111 H (74-99) mg/dL POC Glucose (mg/dL) (75-99) mg/dL Calcium 8.1 L (8.4-10.2) mg/dL 03/24/18 Range/Units 11:31 RBC (4.30-5.90) m/uL Hgb (13.0-17.5) gm/dL Hct (39.0-53.0) % MCHC (31.0-37.0) g/dL Plt Count (150-450) k/uL PT (9.0-12.0) sec INR (<1.2) Chloride (98-107) mmol/L Carbon Dioxide (22-30) mmol/L BUN (9-20) mg/dL Creatinine (0.66-1.25) mg/dL Glucose (74-99) mg/dL POC Glucose (mg/dL) 259 H (75-99) mg/dL Calcium (8.4-10.2) mg/dL Microbiology - Last 24 Hours (Table) 03/23/18 05:36 Blood Culture - Preliminary Blood No Growth after 24 hours Assessment and Plan Plan: Assessment and plan #1 symptoms of progressively worsening shortness of breath, productive cough of yellow sputum. Combination of possible bronchitis/pneumonia and congestive heart failure, systolic acute on chronic. BNP level 29,100. Influenza A and B- . #2 atrial fibrillation with a rapid ventricular response #3 history of chronic persistent atrial fibrillation on Coumadin for anticoagulation #4 elevated INR, 4.7 on arrival here. Coumadin on hold #5 acute on chronic renal insufficiency, creatinine 3.8. #6 diabetes #7 hypertension #8 hyperlipidemia Plan From cardiology's perspective, we'll recommend to continue current dose of IV Lasix. His heart rate today continued to be in the range of 100-1 teens and his dose of beta jose was increased. We will check lytes BUN and creatinine in the morning. As x-ray performed today did reveal improvement in pulmonary vascular congestion. Continue IV Lasix for 24 hours and consider discontinuing in the morning and changing to oral diuretics. DNP note has been reviewed, I agree with a documented findings and plan of care. Patient was seen and examined.
[2018-03-24 17:01] LABS: Glucose,Whole Blood 234 mg/dL (75-99)
--- NOTE | 2018-03-24 17:29 | P.GSCN ---
History of Present Illness Consult date: 03/24/18 History of present illness: Mr. Vaibhav Brown is a 77-year-old gentleman in the hospital with just of heart failure and respiratory failure. He is gone in urine retention and the nursing staff is unable to pass a catheter. We are asked see the patient. The patient is short of breath then respiratorily uncomfortable. He denies any problems voiding. He denies previous urologic consultation. He denies incontinence frequency urgency hematuria or previous urologic procedures. Review of Systems - Constitutional Reports fatigue, Reports weight gain - Cardiovascular Reports as per HPI, Reports dyspnea on exertion - Respiratory Reports as per HPI - Genitourinary Reports as per HPI Past Medical History Past Medical History: Atrial Fibrillation, Heart Failure, Diabetes Mellitus, Hypertension Additional Past Medical History / Comment(s): cataract History of Any Multi-Drug Resistant Organisms: None Reported Past Surgical History: Tonsillectomy Additional Past Surgical History / Comment(s): colonoscopy, skin ca Past Anesthesia/Blood Transfusion Reactions: No Reported Reaction Past Psychological History: No Psychological Hx Reported Smoking Status: Never smoker Past Alcohol Use History: Rare Past Drug Use History: None Reported - Past Family History Father Family Medical History: Cancer Additional Family Medical History / Comment(s): lung Mother Family Medical History: Cancer Additional Family Medical History / Comment(s): ovarian Medications and Allergies Home Medications Medication Instructions Recorded Confirmed Type Acarbose [Precose] 25 mg PO TID 03/22/18 03/22/18 History Carvedilol [Coreg] 12.5 mg PO BID 03/22/18 03/22/18 History Dorzolamide-Timolol 2%/0.5% 1 drop LEFT EYE BID 03/22/18 03/22/18 History [dorzolamide-Timolol 2%/0.5%] Doxazosin Mesylate 2 mg PO HS 03/22/18 03/22/18 History Ergocalciferol (Vitamin D2) 50,000 unit PO Q15D 03/22/18 03/22/18 History [Vitamin D2] Ferrous Sulfate [Feosol] 325 mg PO DAILY 03/22/18 03/22/18 History Furosemide [Lasix] 40 mg PO BID 03/22/18 03/22/18 History Insulin Glargine [Lantus] 0 unit SQ HS 03/22/18 03/22/18 History Latanoprost [Xalatan 0.005%] 1 drop BOTH EYES HS 03/22/18 03/22/18 History Timolol 0.5% Ophth Soln [Timoptic 1 drop BOTH EYES BID 03/22/18 03/22/18 History 0.5% Ophth Soln] Warfarin Sodium [Coumadin] 5 mg PO HS 03/22/18 03/22/18 History cloNIDine HCL [Catapres] 0.2 mg PO BID 03/22/18 03/22/18 History glipiZIDE [Glucotrol] 10 mg PO AC-BID 03/22/18 03/22/18 History hydrALAZINE HCL [Apresoline] 25 mg PO TID 03/22/18 03/22/18 History Allergies Allergy/AdvReac Type Severity Reaction Status Date / Time No Known Allergies Allergy Verified 03/22/18 19:49 Surgical - Exam Vital Signs Temp Pulse Resp BP Pulse Ox 97.9 F 112 H 24 147/106 97 03/22/18 19:32 03/22/18 19:32 03/22/18 19:32 03/22/18 19:32 03/22/18 19:32 - General well developed, moderate distress, obese - Eyes PERRL - ENT no hearing loss - Neck trachea midline - Respiratory The patient is short of breath there are, there are expiratory wheezes and rhonchi - Cardiovascular Rhythm: regular - Abdomen The bladder appears to be full suprapubically Abdomen: tender - Genitourinary The penis is uncircumcised. There is some scrotal edema. Both testes and epididymis are descended - Neurologic normal coordination, normal sensation - Musculoskeletal normal posture - Psychiatric oriented to time, oriented to person, oriented to place, speech is normal, memory intact Results - Labs 03/24/18 06:09 03/24/18 06:09 Abnormal Lab Results - Last 24 Hours (Table) 03/23/18 03/24/18 03/24/18 Range/Units 20:52 06:01 06:09 RBC 3.67 L (4.30-5.90) m/uL Hgb 10.8 L (13.0-17.5) gm/dL Hct 36.1 L (39.0-53.0) % MCHC 29.8 L (31.0-37.0) g/dL Plt Count 136 L (150-450) k/uL PT (9.0-12.0) sec INR (<1.2) Chloride (98-107) mmol/L Carbon Dioxide (22-30) mmol/L BUN (9-20) mg/dL Creatinine (0.66-1.25) mg/dL Glucose (74-99) mg/dL POC Glucose (mg/dL) 228 H 114 H (75-99) mg/dL Calcium (8.4-10.2) mg/dL 03/24/18 03/24/18 03/24/18 Range/Units 06:09 06:09 11:31 RBC (4.30-5.90) m/uL Hgb (13.0-17.5) gm/dL Hct (39.0-53.0) % MCHC (31.0-37.0) g/dL Plt Count (150-450) k/uL PT 43.3 H (9.0-12.0) sec INR 4.8 H (<1.2) Chloride 109 H (98-107) mmol/L Carbon Dioxide 15 L (22-30) mmol/L BUN 58 H (9-20) mg/dL Creatinine 3.90 H (0.66-1.25) mg/dL Glucose 111 H (74-99) mg/dL POC Glucose (mg/dL) 259 H (75-99) mg/dL Calcium 8.1 L (8.4-10.2) mg/dL 03/24/18 Range/Units 16:59 RBC (4.30-5.90) m/uL Hgb (13.0-17.5) gm/dL Hct (39.0-53.0) % MCHC (31.0-37.0) g/dL Plt Count (150-450) k/uL PT (9.0-12.0) sec INR (<1.2) Chloride (98-107) mmol/L Carbon Dioxide (22-30) mmol/L BUN (9-20) mg/dL Creatinine (0.66-1.25) mg/dL Glucose (74-99) mg/dL POC Glucose (mg/dL) 234 H (75-99) mg/dL Calcium (8.4-10.2) mg/dL Microbiology - Last 24 Hours (Table) 03/23/18 05:36 Blood Culture - Preliminary Blood No Growth after 24 hours Diabetes panel 03/24/18 Range/Units 06:09 Sodium 141 (137-145) mmol/L Potassium 3.7 (3.5-5.1) mmol/L Chloride 109 H (98-107) mmol/L Carbon Dioxide 15 L (22-30) mmol/L BUN 58 H (9-20) mg/dL Creatinine 3.90 H (0.66-1.25) mg/dL Glucose 111 H (74-99) mg/dL Calcium 8.1 L (8.4-10.2) mg/dL Calcium panel 03/24/18 Range/Units 06:09 Calcium 8.1 L (8.4-10.2) mg/dL Pituitary panel 03/24/18 Range/Units 06:09 Sodium 141 (137-145) mmol/L Potassium 3.7 (3.5-5.1) mmol/L Chloride 109 H (98-107) mmol/L Carbon Dioxide 15 L (22-30) mmol/L BUN 58 H (9-20) mg/dL Creatinine 3.90 H (0.66-1.25) mg/dL Glucose 111 H (74-99) mg/dL Calcium 8.1 L (8.4-10.2) mg/dL Adrenal panel 03/24/18 Range/Units 06:09 Sodium 141 (137-145) mmol/L Potassium 3.7 (3.5-5.1) mmol/L Chloride 109 H (98-107) mmol/L Carbon Dioxide 15 L (22-30) mmol/L BUN 58 H (9-20) mg/dL Creatinine 3.90 H (0.66-1.25) mg/dL Glucose 111 H (74-99) mg/dL Calcium 8.1 L (8.4-10.2) mg/dL Assessment and Plan Assessment: Impression: Congestive heart failure with respiratory distress. Urine retention with inability nursing staff to pass catheter. Diabetes hypertension Recommendations: Catheterization
--- NOTE | 2018-03-24 17:33 | P.PCN ---
Date of Procedure: 03/24/18 Preoperative Diagnosis: Urine retention Postoperative Diagnosis: Same Procedure(s) Performed: Difficult catheter placement Surgeon: Hari Arce Indications for Procedure: The patient is in congestive heart failure respiratory distress in the has a bladder full of urine. The nursing staff is unable to catheterize patient after several attempts Description of Procedure: The patient is prepped and draped sterilely. Sterile lubricating jelly was introduced into the urethra. A 16 coud-tip catheters passed up to the sphincteric urethra and the patient's urethra spasms. After I get him to relax I'm able to pass the catheter into the bladder. A large amount of urine is obtained. The patient has an apparent large prostate as only a small amount a catheter is as noted from the urethral meatus. Impression: Urine retention secondary to a large prostate aggravated by congestive failure and diuresis ,difficult catheterization Recommendations the patient will be started on tamsulosin. The catheter should remain in place until he is ambulating in which time it can be removed.
[2018-03-24] MEDS: TAMSULOSIN 0.4 MG CAP.ER.24H PO SCH (17:45)
--- NOTE | 2018-03-24 18:27 | PN ---
PROGRESS NOTE Patient is seen for followup for chronic kidney disease. He was admitted to the hospital with shortness of breath and was found to be in fluid overload. He is currently maintained on IV Lasix. Patient states he is feeling better. Renal function is about the same. It has not changed significantly. Serum creatinine is staying at about 3.8 to 3.9 mg/dL. On examination, blood pressure is 144/80, heart rate 108 per minute. Patient is afebrile. EXAMINATION OF THE HEART: S1, S2. EXAMINATION OF LUNGS: Bilateral breath sounds are heard. ABDOMEN: Soft, non-tender. Examination of lower extremities shows edema 1+ bilaterally. BIOLOGICAL AIDE exam is grossly intact. Labs show sodium 141, potassium 3.7. CO2 is 15, BUN 58, serum creatinine 3.9, hemoglobin 10.8 g/dL. Calcium is 8.1. ASSESSMENT: 1. Chronic kidney disease, stage IV to V. We do not have baseline creatinine. However, patient states that he has been in stage V. Etiology is likely nephrosclerosis. I do not have a urinalysis available. I will reorder that. 2. Volume overload, maintained on IV Lasix, which we can continue since renal function is fairly stable. 3. Metabolic acidosis secondary to renal failure, maintained on oral sodium bicarb. I will increase that to 650 mg b.i.d. 4. Anemia of chronic disease. Check iron studies. 5. Congestive heart failure, systolic, acute on top of chronic. 6. Cardiomyopathy, ejection fraction 30% to 35% on echocardiogram. PLAN: Continue IV Lasix. Possible discharge in the next 1 or 2 days. Increase sodium bicarb to 650 mg b.i.d. Check iron studies. Check urinalysis. MMODL / IJN: [id number] /
[2018-03-24 18:42] LABS: Appearance,Urine Cloudy (Clear); Bacteria,Urine Occasional /hpf; Bilirubin,Urine Negative (Negative); Blood,Urine Trace (Negative); Budding Yeast,Urine Moderate /hpf; Color,Urine Yellow; Glucose,Urine (UA) 3+ (Negative); Ketones,Urine Negative (Negative); Leukocyte Esterase,Urine Negative (Negative); Mucus,Urine Rare /hpf; Nitrite,Urine Negative (Negative); PH, Urine 5.5 (5.0-8.0); Protein,Urine 2+ (Negative); RBC,Urine 2 /hpf (0-5); Specific Gravity,Urine 1.008 (1.001-1.035); Urobilinogen,Urine <2.0 mg/dL (<2.0); WBC,Urine 3 /hpf (0-5)
[2018-03-24 19:08] LABS: Iron Saturation 6.52 (15.00-50.00)
[2018-03-24] MEDS: DOXAZOSIN 2 MG TAB PO SCH (19:58)
[2018-03-24] MEDS: LATANOPROST 0.005% OPHTH DROPS 2.5 ML BTL BOTH EYES SCH (20:06)
[2018-03-24 20:44] LABS: Glucose,Whole Blood 220 mg/dL (75-99)
[2018-03-24] MEDS ORDERED: CALCIUM CARBONATE 500 MG CHEWABLE PO PRN (20:52)
[2018-03-24] MEDS ORDERED: METOPROLOL TARTRATE 25 MG TAB PO SCH (21:00)
[2018-03-24] MEDS ORDERED: METOPROLOL TARTRATE 25 MG TAB PO STA (23:38)
[2018-03-25 05:58] LABS: Glucose,Whole Blood 143 mg/dL (75-99)
[2018-03-25] MEDS: ACETAMINOPHEN TAB 325 MG TAB PO PRN ×2 (06:08→19:43)
[2018-03-25] MEDS: INSULIN ASPART 100 UNIT/ML 1 ML 10 ML VIAL SQ SCH ×4 (06:31→20:58)
[2018-03-25 07:27] LABS: INR 2.6 (<1.2); Prothrombin Time 23.5 sec (9.0-12.0)
[2018-03-25 07:42] LABS: Potassium 3.7 mmol/L (3.5-5.1)
[2018-03-25] MEDS: FUROSEMIDE 10 MG/ML 10 ML VIAL IV SCH (08:55)
[2018-03-25] MEDS: FERROUS SULFATE 325 MG TAB PO SCH (08:56)
[2018-03-25] MEDS: hydrALAZINE HCL 25 MG TAB PO SCH ×3 (08:56→20:09)
[2018-03-25] MEDS: TAMSULOSIN 0.4 MG CAP.ER.24H PO SCH (08:56)
[2018-03-25] MEDS: DORZOLAMIDE-TIMOLOL 2-0.5% DROPS 10 ML BTL LEFT EYE SCH ×2 (08:56→20:41)
[2018-03-25] MEDS: METOPROLOL TARTRATE 50 MG TAB PO SCH ×2 (08:56→20:08)
[2018-03-25] MEDS: SODIUM BICARBONATE TAB 650 MG TAB PO SCH ×2 (08:56→20:08)
[2018-03-25] MEDS: TIMOLOL 0.5% OPHTH DROPS 5 ML BTL BOTH EYES SCH ×2 (08:57→20:09)
[2018-03-25] MEDS: IPRATROPIUM-ALBUTEROL 3 ML NEB INHALATION SCH ×4 (09:26→19:43)
--- NOTE | 2018-03-25 10:44 | P.PN ---
Subjective Patient is seen in follow-up for acute kidney injury on chronic kidney disease. Patient has history of chronic kidney disease stage IV/5 and he follows with forest fire fighter out of [place]. Patient's currently resting in bed. He was noted to have urinary retention and had a Bennett catheter placed by urology. He is nonoliguric. Denies active chest pain or shortness of breath. Currently maintained on Lasix 80 mg IV twice daily. Vital signs are stable. General: The patient appeared well nourished and normally developed. HEENT: Head exam is unremarkable. Neck is without jugular venous distension. LUNGS: Breath sounds decreased. HEART: Rate and Rhythm are regular. First and second heart sounds normal. No murmurs, rubs or gallops. ABDOMEN: Abdominal exam reveals normal bowel sounds. Non-tender and non- distended. No evidence of peritonitis. EXTREMITITES: No clubbing, cyanosis, or edema. Objective - Vital Signs Vital signs: Vital Signs Temp 97.7 F 03/25/18 09:03 Pulse 96 03/25/18 09:37 Resp 18 03/25/18 09:03 BP 137/73 03/25/18 09:03 Pulse Ox 98 03/25/18 09:28 Intake & Output 03/24/18 03/25/18 03/25/18 18:59 06:59 18:59 Intake Total 842 100 236 Output Total 201 1151 1 Balance 641 -1051 235 Weight 139 kg Intake: Oral 842 100 236 Output: Urine 100 1150 Post Void Residual 100 Stool 1 1 1 Other: Voiding Method Urinal Indwelling Catheter Indwelling Catheter # Bowel Movements 1 - Labs CBC & Chem 7: 03/24/18 06:09 03/25/18 06:50 Labs: Abnormal Lab Results - Last 24 Hours (Table) 03/23/18 03/24/18 03/24/18 Range/Units 18:00 06:09 11:31 PT (9.0-12.0) sec INR (<1.2) Chloride (98-107) mmol/L Carbon Dioxide (22-30) mmol/L BUN (9-20) mg/dL Creatinine (0.66-1.25) mg/dL Glucose (74-99) mg/dL POC Glucose (mg/dL) 259 H (75-99) mg/dL Calcium (8.4-10.2) mg/dL Iron 18 L (65-175) ug/dL Iron Saturation 6.52 L (15.00-50.00) Urine Protein 2+ H (Negative) Urine Glucose (UA) 3+ H (Negative) Urine Blood Trace H (Negative) Urine WBC Clumps Occasional H (None) /hpf Urine Bacteria Occasional H (None) /hpf Urine Mucus Rare H (None) /hpf Urine Yeast (Budding) Moderate H (None) /hpf 03/24/18 03/24/18 03/25/18 Range/Units 16:59 20:42 05:58 PT (9.0-12.0) sec INR (<1.2) Chloride (98-107) mmol/L Carbon Dioxide (22-30) mmol/L BUN (9-20) mg/dL Creatinine (0.66-1.25) mg/dL Glucose (74-99) mg/dL POC Glucose (mg/dL) 234 H 220 H 143 H (75-99) mg/dL Calcium (8.4-10.2) mg/dL Iron (65-175) ug/dL Iron Saturation (15.00-50.00) Urine Protein (Negative) Urine Glucose (UA) (Negative) Urine Blood (Negative) Urine WBC Clumps (None) /hpf Urine Bacteria (None) /hpf Urine Mucus (None) /hpf Urine Yeast (Budding) (None) /hpf 03/25/18 03/25/18 Range/Units 06:50 06:50 PT 23.5 H (9.0-12.0) sec INR 2.6 H (<1.2) Chloride 108 H (98-107) mmol/L Carbon Dioxide 18 L (22-30) mmol/L BUN 60 H (9-20) mg/dL Creatinine 3.85 H (0.66-1.25) mg/dL Glucose 141 H (74-99) mg/dL POC Glucose (mg/dL) (75-99) mg/dL Calcium 8.0 L (8.4-10.2) mg/dL Iron (65-175) ug/dL Iron Saturation (15.00-50.00) Urine Protein (Negative) Urine Glucose (UA) (Negative) Urine Blood (Negative) Urine WBC Clumps (None) /hpf Urine Bacteria (None) /hpf Urine Mucus (None) /hpf Urine Yeast (Budding) (None) /hpf Microbiology - Last 24 Hours (Table) 03/23/18 05:36 Blood Culture - Preliminary Blood No Growth after 48 hours Assessment and Plan Plan: Assessment: #1. Chronic kidney disease stage 4/5. Unclear as to what his baseline function is. Creatinine today is stable at 3.85. #2. Volume overload maintained on IV diuretics. #3. Metabolic acidosis secondary to chronic kidney disease. Improving. #4. Anemia of chronic kidney disease. Severe iron deficiency noted. #5. Systolic CHF with ejection fraction of 30-35%. #6. Urinary retention status post Bennett catheter placement. Also on Flomax. Plan: Continue Lasix 80 mg IV twice daily for now - can likely be transitioned over to oral tomorrow. Maintain oral sodium bicarbonate. Ferrlecit 125 mg IV daily for 3 days. First dose today. Repeat electrolytes in the morning.
[2018-03-25 11:17] VITALS: BMI 45.2
[2018-03-25 11:39] LABS: Glucose,Whole Blood 247 mg/dL (75-99)
[2018-03-25] MEDS: SODIUM FERRIC GLUCONAT-SUCROSE 125 MG in SODIUM CHLORIDE 0.9% 100 ML IVPB SCH (11:48)
--- NOTE | 2018-03-25 12:12 | P.PN ---
Subjective Patient was admitted to the with the can start failure chronic systolic dysfunction with acute exacerbation patient did not urinate increasing dose of Lasix 80 twice a day will will do bladder scan. Patient does have chronic kidney disease stage V nephrology valid the patient and cardiology evaluated the patient. 03/25/2018 No overnight events patient's heart failure improved a little bit pedal edema improved a little bit no JVD today lungs are clear to ask outpatient, patient will restart back on: Denied repeat INR tomorrow repeat basic metabolic profile tomorrow. Constitutional: Denied any fatigue denied any fever. Cardio vascular: denied any chest pain, palpitations Gastrointestinal denied any nausea vomiting Pulmonary: Denied any shortness of breath cough Neurologic denied any new focal deficits Objective - Vital Signs Vital signs: Vital Signs Temp 97.7 F 03/25/18 09:03 Pulse 96 03/25/18 09:37 Resp 18 03/25/18 09:03 BP 137/73 03/25/18 09:03 Pulse Ox 98 03/25/18 09:28 Intake & Output 03/24/18 03/25/18 03/25/18 18:59 06:59 18:59 Intake Total 842 100 236 Output Total 201 1151 1 Balance 641 -1051 235 Weight 139 kg 139 kg Intake: Oral 842 100 236 Output: Urine 100 1150 Post Void Residual 100 Stool 1 1 1 Other: Voiding Method Urinal Indwelling Catheter Indwelling Catheter # Bowel Movements 1 - Exam PHYSICAL EXAMINATION: GENERAL: The patient is alert and oriented x3, not in any acute distress. Believe these HEENT: Pupils are round and equally reacting to light. EOMI. No scleral icterus. No conjunctival pallor. Normocephalic, atraumatic. No pharyngeal erythema. No thyromegaly. CARDIOVASCULAR: S1 and S2 present. No murmurs. There is S3, elevated JVD and irregularly irregular rhythm PULMONARY: Patient has good air entry but the diffuse bilateral crackles ABDOMEN: Soft, nontender, nondistended, normoactive bowel sounds. No palpable organomegaly. MUSCULOSKELETAL: No joint swelling or deformity. EXTREMITIES: No cyanosis, clubbing, does have pitting pedal edema. NEUROLOGICAL: Gross neurological examination did not reveal any focal deficits. SKIN: No rashes. - Labs CBC & Chem 7: 03/24/18 06:09 03/25/18 06:50 Labs: Abnormal Lab Results - Last 24 Hours (Table) 03/23/18 03/24/18 03/24/18 Range/Units 18:00 06:09 16:59 PT (9.0-12.0) sec INR (<1.2) Chloride (98-107) mmol/L Carbon Dioxide (22-30) mmol/L BUN (9-20) mg/dL Creatinine (0.66-1.25) mg/dL Glucose (74-99) mg/dL POC Glucose (mg/dL) 234 H (75-99) mg/dL Calcium (8.4-10.2) mg/dL Iron 18 L (65-175) ug/dL Iron Saturation 6.52 L (15.00-50.00) Urine Protein 2+ H (Negative) Urine Glucose (UA) 3+ H (Negative) Urine Blood Trace H (Negative) Urine WBC Clumps Occasional H (None) /hpf Urine Bacteria Occasional H (None) /hpf Urine Mucus Rare H (None) /hpf Urine Yeast (Budding) Moderate H (None) /hpf 03/24/18 03/25/18 03/25/18 Range/Units 20:42 05:58 06:50 PT 23.5 H (9.0-12.0) sec INR 2.6 H (<1.2) Chloride (98-107) mmol/L Carbon Dioxide (22-30) mmol/L BUN (9-20) mg/dL Creatinine (0.66-1.25) mg/dL Glucose (74-99) mg/dL POC Glucose (mg/dL) 220 H 143 H (75-99) mg/dL Calcium (8.4-10.2) mg/dL Iron (65-175) ug/dL Iron Saturation (15.00-50.00) Urine Protein (Negative) Urine Glucose (UA) (Negative) Urine Blood (Negative) Urine WBC Clumps (None) /hpf Urine Bacteria (None) /hpf Urine Mucus (None) /hpf Urine Yeast (Budding) (None) /hpf 03/25/18 03/25/18 Range/Units 06:50 11:36 PT (9.0-12.0) sec INR (<1.2) Chloride 108 H (98-107) mmol/L Carbon Dioxide 18 L (22-30) mmol/L BUN 60 H (9-20) mg/dL Creatinine 3.85 H (0.66-1.25) mg/dL Glucose 141 H (74-99) mg/dL POC Glucose (mg/dL) 247 H (75-99) mg/dL Calcium 8.0 L (8.4-10.2) mg/dL Iron (65-175) ug/dL Iron Saturation (15.00-50.00) Urine Protein (Negative) Urine Glucose (UA) (Negative) Urine Blood (Negative) Urine WBC Clumps (None) /hpf Urine Bacteria (None) /hpf Urine Mucus (None) /hpf Urine Yeast (Budding) (None) /hpf Microbiology - Last 24 Hours (Table) 03/23/18 05:36 Blood Culture - Preliminary Blood No Growth after 48 hours Assessment and Plan Plan: -Congestive heart failure chronic systolic dysfunction with acute exacerbation leading to acute hypoxic respiratory failure is low 6 dose was increased we'll do a bladder scan -Anuria: We'll order bladder scan most probably related to congestive heart failure exacerbation along with chronic kidney disease stage V -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 -elevated INR hold of Coumadin -Type 2 diabetes mellitus patient will be resumed on home regimen titrate as needed -Hypertension -Hyperlipidemia
--- NOTE | 2018-03-25 13:52 | PN ---
PROGRESS NOTE This patient's medical records reviewed. This patient was admitted with symptoms of shortness of breath and generalized weakness. Patient is positive for flu. Patient also has acute on chronic renal failure. Patient was given 1 dose of Lasix yesterday and his creatinine jumped to 6.88, patient's INR is 5.7, hemoglobin is 8.6. First and second heart sounds are normal. Lungs are fairly clear to auscultation and percussion. A noncontrast CT of the chest was done which shows some evidence of interstitial fibrosis and possible some pneumonitis. There is no evidence of any significant left ventricular failure. Patient's condition was discussed with Dr. Miller. It appears that the patient does not have any significant heart failure. In view of his acute renal failure, we will gradually give him the fluids. If the patient does not get better, he may need a right heart catheterization for hemodynamic monitoring. We will give him vitamin K 5 mg subcu today in view of the elevated INR. MMGABRIELLAL / IJN: [id number] /
[2018-03-25] MEDS: FUROSEMIDE 80 MG TAB PO SCH (16:08)
[2018-03-25 16:43] LABS: Glucose,Whole Blood 252 mg/dL (75-99)
[2018-03-25] MEDS: WARFARIN 3 MG TAB PO SCH (17:25)
[2018-03-25] MEDS: DOXAZOSIN 2 MG TAB PO SCH (20:09)
[2018-03-25 20:54] LABS: Glucose,Whole Blood 200 mg/dL (75-99)
[2018-03-25] MEDS: LATANOPROST 0.005% OPHTH DROPS 2.5 ML BTL BOTH EYES SCH (20:55)
[2018-03-26 02:31] LABS: Glucose,Whole Blood 166 mg/dL (75-99)
[2018-03-26] MEDS: ACETAMINOPHEN TAB 325 MG TAB PO PRN ×2 (04:11→15:05)
[2018-03-26 06:00] LABS: Glucose,Whole Blood 148 mg/dL (75-99)
[2018-03-26 06:27] LABS: INR 1.9 (<1.2); Prothrombin Time 16.9 sec (9.0-12.0)
[2018-03-26] MEDS: INSULIN ASPART 100 UNIT/ML 1 ML 10 ML VIAL SQ SCH ×4 (06:44→21:11)
[2018-03-26 06:53] LABS: Calcium 8.1 mg/dL (8.4-10.2); Magnesium 2.3 mg/dL (1.6-2.3); Potassium 3.7 mmol/L (3.5-5.1)
[2018-03-26] MEDS: IPRATROPIUM-ALBUTEROL 3 ML NEB INHALATION SCH ×4 (08:01→20:10)
[2018-03-26] MEDS: FERROUS SULFATE 325 MG TAB PO SCH (08:38)
[2018-03-26] MEDS: DORZOLAMIDE-TIMOLOL 2-0.5% DROPS 10 ML BTL LEFT EYE SCH ×2 (08:38→20:26)
[2018-03-26] MEDS: FUROSEMIDE 80 MG TAB PO SCH ×2 (08:38→15:05)
[2018-03-26] MEDS: TAMSULOSIN 0.4 MG CAP.ER.24H PO SCH (08:38)
[2018-03-26] MEDS: TIMOLOL 0.5% OPHTH DROPS 5 ML BTL BOTH EYES SCH ×2 (08:39→20:20)
[2018-03-26] MEDS: hydrALAZINE HCL 25 MG TAB PO SCH ×3 (08:39→20:20)
[2018-03-26] MEDS: SODIUM BICARBONATE TAB 650 MG TAB PO SCH ×2 (08:39→20:20)
[2018-03-26] MEDS: METOPROLOL TARTRATE 50 MG TAB PO SCH ×2 (08:39→20:20)
[2018-03-26] MEDS: SODIUM FERRIC GLUCONAT-SUCROSE 125 MG in SODIUM CHLORIDE 0.9% 100 ML IVPB SCH (09:11)
--- NOTE | 2018-03-26 10:49 | P.PN ---
Subjective Principal diagnosis: Patient is seen for follow-up for chronic kidney disease. He was found to have significant urinary retention and currently has an indwelling Bennett catheter. Patient was also volume overloaded and is maintained on IV Lasix. The Lasix has been switched to by mouth. Patient is receiving IV iron for iron deficiency. He is currently complaining of back pain. Objective - Vital Signs Vital signs: Vital Signs Temp 97.3 F L 03/26/18 08:35 Pulse 107 H 03/26/18 08:35 Resp 16 03/26/18 08:35 BP 144/88 03/26/18 08:35 Pulse Ox 97 03/26/18 08:35 Intake & Output 03/25/18 03/26/18 03/26/18 18:59 06:59 18:59 Intake Total 948 420 Output Total 3 1450 Balance 945 -1450 420 Weight 139 kg 135 kg Intake: Oral 948 420 Output: Urine 1450 Stool 3 Other: Voiding Method Indwelling Catheter Indwelling Catheter # Bowel Movements 1 - Exam On examination patient is comfortable blood pressure 144/88 heart rate 10 7/m he is afebrile Examination of the heart S1 and S2 Exertion lungs decreased breath sounds at bases Abdomen is soft obese Examination lower extremities shows chronic skin changes with chronic edema bilaterally 2+. HELPER COORDINATOR exam is grossly intact. Patient is moving all 4 extremities no focal deficits are noted. - Labs CBC & Chem 7: 03/24/18 06:09 03/26/18 05:42 Labs: Abnormal Lab Results - Last 24 Hours (Table) 03/25/18 03/25/18 03/25/18 Range/Units 11:36 16:39 20:53 PT (9.0-12.0) sec INR (<1.2) Carbon Dioxide (22-30) mmol/L BUN (9-20) mg/dL Creatinine (0.66-1.25) mg/dL Glucose (74-99) mg/dL POC Glucose (mg/dL) 247 H 252 H 200 H (75-99) mg/dL Calcium (8.4-10.2) mg/dL 03/26/18 03/26/18 03/26/18 Range/Units 02:30 05:42 05:42 PT 16.9 H (9.0-12.0) sec INR 1.9 H (<1.2) Carbon Dioxide 19 L (22-30) mmol/L BUN 62 H (9-20) mg/dL Creatinine 4.00 H (0.66-1.25) mg/dL Glucose 152 H (74-99) mg/dL POC Glucose (mg/dL) 166 H (75-99) mg/dL Calcium 8.1 L (8.4-10.2) mg/dL 03/26/18 Range/Units 05:57 PT (9.0-12.0) sec INR (<1.2) Carbon Dioxide (22-30) mmol/L BUN (9-20) mg/dL Creatinine (0.66-1.25) mg/dL Glucose (74-99) mg/dL POC Glucose (mg/dL) 148 H (75-99) mg/dL Calcium (8.4-10.2) mg/dL Microbiology - Last 24 Hours (Table) 03/23/18 05:36 Blood Culture - Preliminary Blood No Growth after 72 hours Assessment and Plan Plan: Assessment 1. Chronic kidney disease stage 4-5 with stable renal function. Serum creatinine is slightly higher today. Diuretics have been switched to by mouth 2. I'll him overload status post IV diuresis currently on oral Lasix 3. Metabolic acidosis secondary to chronic kidney disease currently improved maintained on oral sodium bicarb 4. Anemia of chronic disease 5. Severe iron deficiency currently maintained on IV iron 6. Cardiomyopathy systolic ejection fraction 30-55% 7. CHF systolic acute on top of chronic 8. Urinary retention with indwelling Bennett catheter maintained on Flomax. Plan Continue with oral diuretics. Patient can be discharged from nephrology standpoint with plans to follow-up as outpatient with his primary molecular biologist out of [place]
[2018-03-26 11:57] LABS: Glucose,Whole Blood 214 mg/dL (75-99)
--- NOTE | 2018-03-26 14:17 | P.PN ---
Subjective Patient was admitted to the with the can start failure chronic systolic dysfunction with acute exacerbation patient did not urinate increasing dose of Lasix 80 twice a day will will do bladder scan. Patient does have chronic kidney disease stage V nephrology valid the patient and cardiology evaluated the patient. 03/25/2018 No overnight events patient's heart failure improved a little bit pedal edema improved a little bit no JVD today lungs are clear to ask outpatient, patient will restart back on: Denied repeat INR tomorrow repeat basic metabolic profile tomorrow. 03/26/2018 Patient was switched to oral Lasix artery disease well controlled but the patient is declining to go to rehab patient is quite weak, patient's who takes care of him is hospitalized in [facility] as well been discharged today. Patient's Bennett catheter will remain and patient will follow with neurology as an outpatient patient has urethral stricture Constitutional: Denied any fatigue denied any fever. Cardio vascular: denied any chest pain, palpitations Gastrointestinal denied any nausea vomiting Pulmonary: Denied any shortness of breath cough Neurologic denied any new focal deficits Objective - Vital Signs Vital signs: Vital Signs Temp 97.3 F L 03/26/18 08:35 Pulse 87 03/26/18 11:40 Resp 18 03/26/18 11:40 BP 139/76 03/26/18 11:40 Pulse Ox 95 03/26/18 11:40 Intake & Output 03/25/18 03/26/18 03/26/18 18:59 06:59 18:59 Intake Total 948 940 Output Total 3 1450 Balance 945 -1450 940 Weight 139 kg 135 kg Intake: Oral 948 940 Output: Urine 1450 Stool 3 Other: Voiding Method Indwelling Catheter Indwelling Catheter Indwelling Catheter # Bowel Movements 1 - Exam PHYSICAL EXAMINATION: GENERAL: The patient is alert and oriented x3, not in any acute distress. Believe these HEENT: Pupils are round and equally reacting to light. EOMI. No scleral icterus. No conjunctival pallor. Normocephalic, atraumatic. No pharyngeal erythema. No thyromegaly. CARDIOVASCULAR: S1 and S2 present. No murmurs. There is S3, JVD improved PULMONARY: Patient has good air entry crackles improved ABDOMEN: Soft, nontender, nondistended, normoactive bowel sounds. No palpable organomegaly. MUSCULOSKELETAL: No joint swelling or deformity. EXTREMITIES: No cyanosis, clubbing, does have pitting pedal edema, improved significantly. NEUROLOGICAL: Gross neurological examination did not reveal any focal deficits. SKIN: No rashes. - Labs CBC & Chem 7: 03/24/18 06:09 03/26/18 05:42 Labs: Abnormal Lab Results - Last 24 Hours (Table) 03/25/18 03/25/18 03/26/18 Range/Units 16:39 20:53 02:30 PT (9.0-12.0) sec INR (<1.2) Carbon Dioxide (22-30) mmol/L BUN (9-20) mg/dL Creatinine (0.66-1.25) mg/dL Glucose (74-99) mg/dL POC Glucose (mg/dL) 252 H 200 H 166 H (75-99) mg/dL Calcium (8.4-10.2) mg/dL 03/26/18 03/26/18 03/26/18 Range/Units 05:42 05:42 05:57 PT 16.9 H (9.0-12.0) sec INR 1.9 H (<1.2) Carbon Dioxide 19 L (22-30) mmol/L BUN 62 H (9-20) mg/dL Creatinine 4.00 H (0.66-1.25) mg/dL Glucose 152 H (74-99) mg/dL POC Glucose (mg/dL) 148 H (75-99) mg/dL Calcium 8.1 L (8.4-10.2) mg/dL 03/26/18 Range/Units 11:49 PT (9.0-12.0) sec INR (<1.2) Carbon Dioxide (22-30) mmol/L BUN (9-20) mg/dL Creatinine (0.66-1.25) mg/dL Glucose (74-99) mg/dL POC Glucose (mg/dL) 214 H (75-99) mg/dL Calcium (8.4-10.2) mg/dL Microbiology - Last 24 Hours (Table) 03/23/18 05:36 Blood Culture - Preliminary Blood No Growth after 72 hours Assessment and Plan Plan: -Congestive heart failure chronic systolic dysfunction with acute exacerbation leading to acute hypoxic respiratory failure i, patient is fairly euvolemic was switched to oral Lasix today -Urinary retention secondary to BPH or urethral stricture patient is a Bennett catheter which she will continue follow-up with urology as an outpatient -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
[2018-03-26 17:32] LABS: Glucose,Whole Blood 256 mg/dL (75-99)
[2018-03-26] MEDS: WARFARIN 3 MG TAB PO SCH (17:35)
[2018-03-26] MEDS: LATANOPROST 0.005% OPHTH DROPS 2.5 ML BTL BOTH EYES SCH (20:20)
[2018-03-26] MEDS: DOXAZOSIN 2 MG TAB PO SCH (20:20)
[2018-03-26 20:59] LABS: Glucose,Whole Blood 260 mg/dL (75-99)
[2018-03-27] MEDS: ACETAMINOPHEN TAB 325 MG TAB PO PRN ×3 (00:55→16:49)
[2018-03-27 06:12] LABS: Glucose,Whole Blood 224 mg/dL (75-99)
[2018-03-27] MEDS: INSULIN ASPART 100 UNIT/ML 1 ML 10 ML VIAL SQ SCH ×4 (06:36→21:13)
[2018-03-27 07:13] LABS: INR 1.7 (<1.2); Prothrombin Time 15.8 sec (9.0-12.0)
[2018-03-27] MEDS: IPRATROPIUM-ALBUTEROL 3 ML NEB INHALATION SCH ×4 (08:00→19:37)
[2018-03-27] MEDS: SODIUM BICARBONATE TAB 650 MG TAB PO SCH ×2 (08:42→21:07)
[2018-03-27] MEDS: FERROUS SULFATE 325 MG TAB PO SCH (08:42)
[2018-03-27] MEDS: FUROSEMIDE 80 MG TAB PO SCH ×2 (08:42→15:43)
[2018-03-27] MEDS: TAMSULOSIN 0.4 MG CAP.ER.24H PO SCH (08:42)
[2018-03-27] MEDS: METOPROLOL TARTRATE 50 MG TAB PO SCH ×2 (08:42→21:07)
[2018-03-27] MEDS: hydrALAZINE HCL 25 MG TAB PO SCH ×3 (08:43→21:07)
[2018-03-27] MEDS: DORZOLAMIDE-TIMOLOL 2-0.5% DROPS 10 ML BTL LEFT EYE SCH ×2 (08:44→21:06)
[2018-03-27] MEDS: TIMOLOL 0.5% OPHTH DROPS 5 ML BTL BOTH EYES SCH ×2 (08:44→21:06)
--- NOTE | 2018-03-27 10:09 | PN ---
PROGRESS NOTE Patient is seen for followup for chronic kidney disease and acute kidney injury. He has a significant urine retention and currently has an indwelling Bennett catheter. Patient is also being diuresed for volume overload. He was maintained on IV Lasix which is now switched to p.o. The patient is receiving IV iron for severe iron deficiency. PHYSICAL EXAMINATION: Blood pressure is 144/90, heart rate 106 per minute. He is afebrile. Examination of the heart S1, S2. Examination of the lungs bilateral breath sounds are heard. Abdomen is soft, nontender, obese. Examination of the lower extremities shows chronic skin changes. Edema 1+ bilaterally. MIXED CROP FARMER exam is grossly intact. LABS SHOW: Sodium 141, potassium 4.0, BUN 66, serum creatinine 3.78. The INR is 1.7, calcium is 8.0. ASSESSMENT: 1. Chronic kidney disease stage 5 secondary to diabetic nephropathy and nephrosclerosis. 2. Acute kidney injury secondary to urine retention and cardiorenal currently with indwelling Bennett catheter. Lasix has been switched to p.o. 3. Volume overload, currently improved. 4. Cardiomyopathy, ejection fraction 30-35%. 5. Congestive heart failure, acute on top of chronic, mainly systolic. 6. Severe iron deficiency maintained on IV iron. 7. Anemia of chronic disease and iron deficiency maintained on Aranesp. PLAN: Continue diuretics. The patient can be discharged from nephrology standpoint with followup as outpatient. MMODL / IJN: [id number] /
[2018-03-27] MEDS: SODIUM FERRIC GLUCONAT-SUCROSE 125 MG in SODIUM CHLORIDE 0.9% 100 ML IVPB SCH (10:18)
[2018-03-27 12:02] LABS: Glucose,Whole Blood 276 mg/dL (75-99)
--- NOTE | 2018-03-27 13:41 | P.PN ---
Subjective Patient was admitted to the with the can start failure chronic systolic dysfunction with acute exacerbation patient did not urinate increasing dose of Lasix 80 twice a day will will do bladder scan. Patient does have chronic kidney disease stage V nephrology valid the patient and cardiology evaluated the patient. 03/25/2018 No overnight events patient's heart failure improved a little bit pedal edema improved a little bit no JVD today lungs are clear to ask outpatient, patient will restart back on: Denied repeat INR tomorrow repeat basic metabolic profile tomorrow. 03/26/2018 Patient was switched to oral Lasix artery disease well controlled but the patient is declining to go to rehab patient is quite weak, patient's who takes care of him is hospitalized in [facility] as well been discharged today. Patient's Bennett catheter will remain and patient will follow with neurology as an outpatient patient has urethral stricture 03/27/2018 No overnight events, patient is clinically doing well and wanted to go home, but quite weak. Declining to participate in physical therapy evaluation Constitutional: Denied any fatigue denied any fever. Cardio vascular: denied any chest pain, palpitations Gastrointestinal denied any nausea vomiting Pulmonary: Denied any shortness of breath cough Neurologic denied any new focal deficits Objective - Vital Signs Vital signs: Vital Signs Temp 97.6 F 03/27/18 12:00 Pulse 109 H 03/27/18 12:00 Resp 18 03/27/18 12:00 BP 144/91 03/27/18 12:00 Pulse Ox 97 03/27/18 12:00 Intake & Output 03/26/18 03/27/18 03/27/18 18:59 06:59 18:59 Intake Total 1360 100 Output Total 2050 Balance -691 100 Weight 136 kg Intake: Oral 1360 100 Output: Urine 2049 Stool 1 Other: Voiding Method Indwelling Catheter Indwelling Catheter # Bowel Movements 1 - Exam PHYSICAL EXAMINATION: GENERAL: The patient is alert and oriented x3, not in any acute distress. Believe these HEENT: Pupils are round and equally reacting to light. EOMI. No scleral icterus. No conjunctival pallor. Normocephalic, atraumatic. No pharyngeal erythema. No thyromegaly. CARDIOVASCULAR: S1 and S2 present. No murmurs. There is S3, JVD improved PULMONARY: Patient has good air entry crackles improved ABDOMEN: Soft, nontender, nondistended, normoactive bowel sounds. No palpable organomegaly. MUSCULOSKELETAL: No joint swelling or deformity. EXTREMITIES: No cyanosis, clubbing, does have pitting pedal edema, improved significantly. NEUROLOGICAL: Gross neurological examination did not reveal any focal deficits. SKIN: No rashes. - Labs CBC & Chem 7: 03/24/18 06:09 03/27/18 06:32 Labs: Abnormal Lab Results - Last 24 Hours (Table) 03/26/18 03/26/18 03/27/18 Range/Units 17:30 20:49 06:09 PT (9.0-12.0) sec INR (<1.2) BUN (9-20) mg/dL Creatinine (0.66-1.25) mg/dL Glucose (74-99) mg/dL POC Glucose (mg/dL) 256 H 260 H 224 H (75-99) mg/dL Calcium (8.4-10.2) mg/dL 03/27/18 03/27/18 03/27/18 Range/Units 06:32 06:32 11:35 PT 15.8 H (9.0-12.0) sec INR 1.7 H (<1.2) BUN 66 H (9-20) mg/dL Creatinine 3.78 H (0.66-1.25) mg/dL Glucose 213 H (74-99) mg/dL POC Glucose (mg/dL) 276 H (75-99) mg/dL Calcium 8.0 L (8.4-10.2) mg/dL Microbiology - Last 24 Hours (Table) 03/23/18 05:36 Blood Culture - Preliminary Blood No Growth after 96 hours Assessment and Plan Plan: -Congestive heart failure chronic systolic dysfunction with acute exacerbation leading to acute hypoxic respiratory failure i, patient is fairly euvolemic was on oral Lasix today -Urinary retention secondary to BPH or urethral stricture patient is a Bennett catheter which she will continue follow-up with urology as an outpatient -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
[2018-03-27 17:02] LABS: Glucose,Whole Blood 224 mg/dL (75-99)
[2018-03-27] MEDS ORDERED: WARFARIN 2 MG TAB PO SCH (18:00)
[2018-03-27 21:06] LABS: Glucose,Whole Blood 254 mg/dL (75-99)
[2018-03-27] MEDS: DOXAZOSIN 2 MG TAB PO SCH (21:07)
[2018-03-27] MEDS: LATANOPROST 0.005% OPHTH DROPS 2.5 ML BTL BOTH EYES SCH (21:08)
[2018-03-28 06:45] LABS: Glucose,Whole Blood 169 mg/dL (75-99)
[2018-03-28] MEDS: INSULIN ASPART 100 UNIT/ML 1 ML 10 ML VIAL SQ SCH ×4 (06:55→21:14)
[2018-03-28 07:03] LABS: INR 1.7 (<1.2); Prothrombin Time 15.7 sec (9.0-12.0)
[2018-03-28 07:17] LABS: Calcium 8.4 mg/dL (8.4-10.2); Potassium 4.1 mmol/L (3.5-5.1)
[2018-03-28] MEDS: TAMSULOSIN 0.4 MG CAP.ER.24H PO SCH (08:03)
[2018-03-28] MEDS: FUROSEMIDE 80 MG TAB PO SCH ×2 (08:03→15:02)
[2018-03-28] MEDS: ACETAMINOPHEN TAB 325 MG TAB PO PRN ×2 (08:03→14:51)
[2018-03-28] MEDS: METOPROLOL TARTRATE 50 MG TAB PO SCH ×3 (08:03→20:20)
[2018-03-28] MEDS: FERROUS SULFATE 325 MG TAB PO SCH (08:03)
[2018-03-28] MEDS: SODIUM BICARBONATE TAB 650 MG TAB PO SCH ×2 (08:03→20:21)
[2018-03-28] MEDS: hydrALAZINE HCL 25 MG TAB PO SCH (08:03)
[2018-03-28] MEDS: DORZOLAMIDE-TIMOLOL 2-0.5% DROPS 10 ML BTL LEFT EYE SCH ×2 (08:04→20:21)
[2018-03-28] MEDS: TIMOLOL 0.5% OPHTH DROPS 5 ML BTL BOTH EYES SCH ×2 (08:04→20:20)
--- NOTE | 2018-03-28 08:30 | XR ---
EXAMINATION TYPE: XR chest 2V DATE OF EXAM: 03/28/2018 HISTORY: Pneumonia. REFERENCE: Previous study dated 03/24/2018. FINDINGS: The heart remains mildly enlarged. There continues to be left basilar airspace disease. Thi s has improved. I suspect a small left-sided pleural effusion. IMPRESSION: IMPROVED AERATION, LEFT LUNG BASE.
[2018-03-28] MEDS: IPRATROPIUM-ALBUTEROL 3 ML NEB INHALATION SCH ×4 (08:53→20:22)
[2018-03-28] MEDS: SODIUM FERRIC GLUCONAT-SUCROSE 125 MG in SODIUM CHLORIDE 0.9% 100 ML IVPB SCH (10:06)
[2018-03-28 11:16] LABS: Glucose,Whole Blood 266 mg/dL (75-99)
[2018-03-28] MEDS ORDERED: WARFARIN 5 MG TAB PO SCH (12:15)
--- NOTE | 2018-03-28 12:49 | P.PN ---
Subjective Progress Note Date: 03/28/18 This is a 77-year-old gentleman who follows with Dr. Jain in the office. He was transferred here for [facility], apparently the patient presented there with symptoms of shortness of breath with persistent productive cough. He has a known history of chronic persistent atrial fibrillation on Coumadin for anticoagulation, diabetes, hypertension, lipidemia, patient there was noted to be in atrial fibrillation with rapid ventricular response, he was started on a Cardizem drip and transferred here. His INR was also noted to be significantly elevated. Chest x-ray suggested a left lower lobe pneumonia. White blood cell count 8.6, hemoglobin 11.5, platelet count 102, sodium 137, potassium 3.7, BUN 58, creatinine 3.7. INR 5.2 these were the labs that were drawn at [place]. EKG on arrival here showed atrial fibrillation with a rapid ventricular response. Hemoglobin here 10.8, platelet count 128. INR 4.7, sodium 143, potassium 3.5, BUN 55, creatinine 3.8. Magnesium level II.3, BNP 29 ,100. Influenza A and B were negative. Blood pressure 132/90 with a heart rate in the low 1 teens. 99% on room air. Chest x-ray on arrival here showed a overall stable findings, cardiomegaly with mild central vascular congestion and likely tiny bilateral pleural effusions. A cardiogram with Doppler study was performed which revealed an ejection fraction of 30-35%. According to Dr. Jain's office note, echo performed in 2016 reported to have a normal left ventricular systolic function. 03/24/2018 Patient was seen and examined this morning, feeling better overall, continues to have productive cough of yellow sputum. Documentation of intake and output has not been accurate. His weight is documented to be up today, however patient states he is putting out urine from the IV Lasix. He continues to be on IV Lasix at this time. INR today 4.8, hemoglobin 10.8, sodium 141, potassium 3.7, BUN 58, creatinine 3.9. We would recommend to continue the patient on his current dose of IV Lasix, try to maintain accurate intake and output as well as daily weight. Hold Coumadin today. 03/28/2018 Patient seen and examined at this morning feels about the same. Continues to feel mildly short of breath having some generalized weakness. Creatinine today up to 3.8, INR 1.7. A noncontrast CT of the chest was done which revealed some evidence of interstitial fibrosis and possible pneumonitis. No evidence of significant heart failure. Objective - Vital Signs Vital signs: Vital Signs Temp 97.6 F 03/28/18 08:00 Pulse 112 H 03/28/18 09:07 Resp 18 03/28/18 08:00 BP 166/99 03/28/18 08:00 Pulse Ox 97 03/28/18 08:00 Intake & Output 03/27/18 03/28/18 03/28/18 18:59 06:59 18:59 Intake Total 600 0 180 Output Total 3800 Balance -3200 0 180 Weight 135.5 kg Intake: Oral 600 0 180 Output: Urine 3800 Other: Voiding Method Indwelling Catheter Indwelling Catheter # Bowel Movements 1 - Exam PHYSICAL EXAMINATION: HEENT: Head is atraumatic, normocephalic. Pupils equal, round. Neck is supple. There is elevated jugular venous pressure. HEART EXAMINATION: Heart S1 and S2 irregularly irregular CHEST EXAMINATION: Lungs reveal diminished air entry to bilateral bases with rales noted to bilateral bases as well. ABDOMEN: Soft, nontender. Bowel sounds are heard. No organomegaly noted. EXTREMITIES: 2+ peripheral pulses with evidence of peripheral edema and no calf tenderness noted. NEUROLOGIC patient is awake, alert and oriented -3. - Labs CBC & Chem 7: 03/24/18 06:09 03/28/18 06:24 Labs: Abnormal Lab Results - Last 24 Hours (Table) 03/27/18 03/27/18 03/28/18 Range/Units 16:50 21:03 06:24 PT 15.7 H (9.0-12.0) sec INR 1.7 H (<1.2) BUN (9-20) mg/dL Creatinine (0.66-1.25) mg/dL Glucose (74-99) mg/dL POC Glucose (mg/dL) 224 H 254 H (75-99) mg/dL 03/28/18 03/28/18 03/28/18 Range/Units 06:24 06:43 11:13 PT (9.0-12.0) sec INR (<1.2) BUN 68 H (9-20) mg/dL Creatinine 3.80 H (0.66-1.25) mg/dL Glucose 172 H (74-99) mg/dL POC Glucose (mg/dL) 169 H 266 H (75-99) mg/dL Microbiology - Last 24 Hours (Table) 03/23/18 05:36 Blood Culture - Preliminary Blood No Growth after 120 hours Assessment and Plan Plan: Assessment and plan #1 symptoms of progressively worsening shortness of breath, productive cough of yellow sputum. Combination of possible bronchitis/pneumonia and congestive heart failure, systolic acute on chronic. BNP level 29,100. Influenza A and B- . #2 atrial fibrillation with a rapid ventricular response #3 history of chronic persistent atrial fibrillation on Coumadin for anticoagulation #4 elevated INR, 4.7 on arrival here. Coumadin on hold #5 acute on chronic renal insufficiency, creatinine 3.8. #6 diabetes #7 hypertension #8 hyperlipidemia Plan Cardiology's perspective, we will recommend to continue current dose of by mouth Lasix along with other medications. If patient does not improve he may require right heart catheterization for hemodynamic monitoring. DNP note has been reviewed, I agree with a documented findings and plan of care. Patient was seen and examined.
--- NOTE | 2018-03-28 13:25 | P.PN ---
Subjective Patient was admitted to the with the can start failure chronic systolic dysfunction with acute exacerbation patient did not urinate increasing dose of Lasix 80 twice a day will will do bladder scan. Patient does have chronic kidney disease stage V nephrology valid the patient and cardiology evaluated the patient. 03/25/2018 No overnight events patient's heart failure improved a little bit pedal edema improved a little bit no JVD today lungs are clear to ask outpatient, patient will restart back on: Denied repeat INR tomorrow repeat basic metabolic profile tomorrow. 03/26/2018 Patient was switched to oral Lasix artery disease well controlled but the patient is declining to go to rehab patient is quite weak, patient's who takes care of him is hospitalized in [facility] as well been discharged today. Patient's Bennett catheter will remain and patient will follow with neurology as an outpatient patient has urethral stricture 03/27/2018 No overnight events, patient is clinically doing well and wanted to go home, but quite weak. 03/28/2018 Patient respiratory status improved significantly, patient is still tachycardic patient is in and out of atrial fibrillation, dose of metoprolol will be increased discussed with cardiology patient has ejection fraction of around 30- 35% Declining to participate in physical therapy evaluation Constitutional: Denied any fatigue denied any fever. Cardio vascular: denied any chest pain, palpitations Gastrointestinal denied any nausea vomiting Pulmonary: Denied any shortness of breath cough Neurologic denied any new focal deficits Objective - Vital Signs Vital signs: Vital Signs Temp 97.6 F 03/28/18 08:00 Pulse 96 03/28/18 13:12 Resp 18 03/28/18 08:00 BP 166/99 03/28/18 08:00 Pulse Ox 97 03/28/18 08:00 Intake & Output 03/27/18 03/28/18 03/28/18 18:59 06:59 18:59 Intake Total 600 0 216 Output Total 3800 1500 Balance -3200 0 -1284 Weight 135.5 kg Intake: Oral 600 0 216 Output: Urine 3800 1500 Other: Voiding Method Indwelling Catheter Indwelling Catheter # Bowel Movements 1 - Exam PHYSICAL EXAMINATION: GENERAL: The patient is alert and oriented x3, not in any acute distress. Believe these HEENT: Pupils are round and equally reacting to light. EOMI. No scleral icterus. No conjunctival pallor. Normocephalic, atraumatic. No pharyngeal erythema. No thyromegaly. CARDIOVASCULAR: S1 and S2 present. No murmurs. There is S3, JVD improved PULMONARY: Patient has good air entry crackles improved ABDOMEN: Soft, nontender, nondistended, normoactive bowel sounds. No palpable organomegaly. MUSCULOSKELETAL: No joint swelling or deformity. EXTREMITIES: No cyanosis, clubbing, does have pitting pedal edema, improved significantly. NEUROLOGICAL: Gross neurological examination did not reveal any focal deficits. SKIN: No rashes. - Labs CBC & Chem 7: 03/24/18 06:09 03/28/18 06:24 Labs: Abnormal Lab Results - Last 24 Hours (Table) 03/27/18 03/27/18 03/28/18 Range/Units 16:50 21:03 06:24 PT 15.7 H (9.0-12.0) sec INR 1.7 H (<1.2) BUN (9-20) mg/dL Creatinine (0.66-1.25) mg/dL Glucose (74-99) mg/dL POC Glucose (mg/dL) 224 H 254 H (75-99) mg/dL 03/28/18 03/28/18 03/28/18 Range/Units 06:24 06:43 11:13 PT (9.0-12.0) sec INR (<1.2) BUN 68 H (9-20) mg/dL Creatinine 3.80 H (0.66-1.25) mg/dL Glucose 172 H (74-99) mg/dL POC Glucose (mg/dL) 169 H 266 H (75-99) mg/dL Microbiology - Last 24 Hours (Table) 03/23/18 05:36 Blood Culture - Preliminary Blood No Growth after 120 hours Assessment and Plan Plan: -Congestive heart failure chronic systolic dysfunction with acute exacerbation leading to acute hypoxic respiratory failure i, patient is fairly euvolemic was on oral Lasix -Urinary retention secondary to BPH or urethral stricture patient is a Bennett catheter which she will continue follow-up with urology as an outpatient -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 -Type 2 diabetes mellitus patient will be resumed on home regimen titrate as needed -Hypertension -Hyperlipidemia
[2018-03-28 16:23] LABS: Glucose,Whole Blood 297 mg/dL (75-99)
[2018-03-28] MEDS: LATANOPROST 0.005% OPHTH DROPS 2.5 ML BTL BOTH EYES SCH (20:21)
[2018-03-28] MEDS: DOXAZOSIN 2 MG TAB PO SCH (20:22)
[2018-03-28 21:02] LABS: Glucose,Whole Blood 264 mg/dL (75-99)
[2018-03-29 06:24] LABS: Glucose,Whole Blood 145 mg/dL (75-99)
[2018-03-29] MEDS: INSULIN ASPART 100 UNIT/ML 1 ML 10 ML VIAL SQ SCH ×2 (06:31→11:50)
[2018-03-29 07:04] LABS: Prothrombin Time 17.9 sec (9.0-12.0)
[2018-03-29 07:08] LABS: Calcium 8.6 mg/dL (8.4-10.2); Potassium 4.5 mmol/L (3.5-5.1)
[2018-03-29] MEDS: IPRATROPIUM-ALBUTEROL 3 ML NEB INHALATION SCH ×3 (07:44→15:36)
[2018-03-29] MEDS: FERROUS SULFATE 325 MG TAB PO SCH (07:59)
[2018-03-29] MEDS: FUROSEMIDE 80 MG TAB PO SCH ×2 (07:59→15:33)
[2018-03-29] MEDS: TIMOLOL 0.5% OPHTH DROPS 5 ML BTL BOTH EYES SCH (08:00)
[2018-03-29] MEDS: DORZOLAMIDE-TIMOLOL 2-0.5% DROPS 10 ML BTL LEFT EYE SCH (08:00)
[2018-03-29] MEDS: METOPROLOL TARTRATE 50 MG TAB PO SCH (08:00)
[2018-03-29] MEDS: SODIUM BICARBONATE TAB 650 MG TAB PO SCH (08:00)
[2018-03-29] MEDS: TAMSULOSIN 0.4 MG CAP.ER.24H PO SCH (08:02)
[2018-03-29 11:34] LABS: Glucose,Whole Blood 215 mg/dL (75-99)
--- NOTE | 2018-03-29 15:16 | P.PN ---
Subjective Progress Note Date: 03/29/18 This is a 77-year-old gentleman who follows with Dr. Jain in the office. He was transferred here for [facility], apparently the patient presented there with symptoms of shortness of breath with persistent productive cough. He has a known history of chronic persistent atrial fibrillation on Coumadin for anticoagulation, diabetes, hypertension, lipidemia, patient there was noted to be in atrial fibrillation with rapid ventricular response, he was started on a Cardizem drip and transferred here. His INR was also noted to be significantly elevated. Chest x-ray suggested a left lower lobe pneumonia. White blood cell count 8.6, hemoglobin 11.5, platelet count 102, sodium 137, potassium 3.7, BUN 58, creatinine 3.7. INR 5.2 these were the labs that were drawn at [place]. EKG on arrival here showed atrial fibrillation with a rapid ventricular response. Hemoglobin here 10.8, platelet count 128. INR 4.7, sodium 143, potassium 3.5, BUN 55, creatinine 3.8. Magnesium level II.3, BNP 29 ,100. Influenza A and B were negative. Blood pressure 132/90 with a heart rate in the low 1 teens. 99% on room air. Chest x-ray on arrival here showed a overall stable findings, cardiomegaly with mild central vascular congestion and likely tiny bilateral pleural effusions. A cardiogram with Doppler study was performed which revealed an ejection fraction of 30-35%. According to Dr. Jain's office note, echo performed in 2016 reported to have a normal left ventricular systolic function. 03/24/2018 Patient was seen and examined this morning, feeling better overall, continues to have productive cough of yellow sputum. Documentation of intake and output has not been accurate. His weight is documented to be up today, however patient states he is putting out urine from the IV Lasix. He continues to be on IV Lasix at this time. INR today 4.8, hemoglobin 10.8, sodium 141, potassium 3.7, BUN 58, creatinine 3.9. We would recommend to continue the patient on his current dose of IV Lasix, try to maintain accurate intake and output as well as daily weight. Hold Coumadin today. 03/28/2018 Patient seen and examined at this morning feels about the same. Continues to feel mildly short of breath having some generalized weakness. Creatinine today up to 3.8, INR 1.7. A noncontrast CT of the chest was done which revealed some evidence of interstitial fibrosis and possible pneumonitis. No evidence of significant heart failure. 03/29/2018 Patient seen and examined this morning, lying down at at the time of my examination. Continues to feel weak does state that breathing is improving. INR today is 2, creatinine 3.6. Arrangements are being made for the patient to potentially be discharged home today. We will schedule him a follow-up appointment in the office post discharge. Objective - Vital Signs Vital signs: Vital Signs Temp 96 F L 03/29/18 07:57 Pulse 105 H 03/29/18 11:49 Resp 18 03/29/18 15:06 BP 161/89 03/29/18 11:49 Pulse Ox 95 03/29/18 11:49 Intake & Output 03/28/18 03/29/18 03/29/18 18:59 06:59 18:59 Intake Total 576 200 590 Output Total 1500 701 700 [facility] -[phone] -110 Weight 135.5 kg Intake: Oral 576 200 590 Output: Urine 1500 700 700 Stool 1 Other: Voiding Method Indwelling Catheter Indwelling Catheter Indwelling Catheter # Bowel Movements 1 1 - Exam PHYSICAL EXAMINATION: HEENT: Head is atraumatic, normocephalic. Pupils equal, round. Neck is supple. There is elevated jugular venous pressure. HEART EXAMINATION: Heart S1 and S2 irregularly irregular CHEST EXAMINATION: Lungs reveal diminished air entry to bilateral bases with rales noted to bilateral bases as well. ABDOMEN: Soft, nontender. Bowel sounds are heard. No organomegaly noted. EXTREMITIES: 2+ peripheral pulses with evidence of peripheral edema and no calf tenderness noted. NEUROLOGIC patient is awake, alert and oriented -3. - Labs CBC & Chem 7: 03/24/18 06:09 03/29/18 06:30 Labs: Abnormal Lab Results - Last 24 Hours (Table) 03/28/18 03/28/18 03/29/18 Range/Units 16:08 21:01 06:22 PT (9.0-12.0) sec INR (<1.2) BUN (9-20) mg/dL Creatinine (0.66-1.25) mg/dL Glucose (74-99) mg/dL POC Glucose (mg/dL) 297 H 264 H 145 H (75-99) mg/dL 03/29/18 03/29/18 03/29/18 Range/Units 06:30 06:30 11:32 PT 17.9 H (9.0-12.0) sec INR 2.0 H (<1.2) BUN 74 H (9-20) mg/dL Creatinine 3.60 H (0.66-1.25) mg/dL Glucose 150 H (74-99) mg/dL POC Glucose (mg/dL) 215 H (75-99) mg/dL Microbiology - Last 24 Hours (Table) 03/23/18 05:36 Blood Culture - Final Blood No Growth after 144 hours Assessment and Plan Plan: Assessment and plan #1 symptoms of progressively worsening shortness of breath, productive cough of yellow sputum. Combination of possible bronchitis/pneumonia and congestive heart failure, systolic acute on chronic. BNP level 29,100. Influenza A and B- . #2 atrial fibrillation with a rapid ventricular response #3 history of chronic persistent atrial fibrillation on Coumadin for anticoagulation #4 elevated INR, 4.7 on arrival here. Coumadin on hold #5 acute on chronic renal insufficiency, creatinine 3.8. #6 diabetes #7 hypertension #8 hyperlipidemia Plan Cardiology's perspective, we will recommend to continue current dose of by mouth Lasix along with other medications. He may be able to be discharged from cardiology's perspective, we'll make a follow-up appointment in the office post discharge. DNP note has been reviewed, I agree with a documented findings and plan of care. Patient was seen and examined.
[2018-03-29 15:33] VITALS: BP 165/78; PULSE 102; RESP 17; TEMP 96.9
--- NOTE | 2018-03-29 16:06 | P.DS ---
Providers Date of admission: 03/22/18 20:18 Attending physician: Rachell Perera Consults: 03/22/18 20:18 Consult Physician Routine Consulting Provider: Zacarias Benitez Consult Reason/Comments: afib Do you want consulting provider notified?: Yes 03/23/18 01:41 Consult Physician Routine Consulting Provider: Derrick Miller Consult Reason/Comments: KIDNEY FUCTION Do you want consulting provider notified?: Yes, Notify in am 03/24/18 17:08 Consult Physician Stat Consulting Provider: Hari Arce Consult Reason/Comments: unable to pass judd Do you want consulting provider notified?: Yes Primary care physician: [facility] Course: Patient was admitted to the with the can start failure chronic systolic dysfunction with acute exacerbation patient did not urinate increasing dose of Lasix 80 twice a day will will do bladder scan. Patient does have chronic kidney disease stage V nephrology valid the patient and cardiology evaluated the patient. 03/25/2018 No overnight events patient's heart failure improved a little bit pedal edema improved a little bit no JVD today lungs are clear to ask outpatient, patient will restart back on: Denied repeat INR tomorrow repeat basic metabolic profile tomorrow. 03/26/2018 Patient was switched to oral Lasix artery disease well controlled but the patient is declining to go to rehab patient is quite weak, patient's who takes care of him is hospitalized in [facility] as well been discharged today. Patient's Judd catheter will remain and patient will follow with neurology as an outpatient patient has urethral stricture 03/27/2018 No overnight events, patient is clinically doing well and wanted to go home, but quite weak. 03/28/2018 Patient respiratory status improved significantly, patient is still tachycardic patient is in and out of atrial fibrillation, dose of metoprolol will be increased discussed with cardiology patient has ejection fraction of around 30- 35% 03/29/2018 Patient overall clinically doing well but definitely high risk for readmission because of his multiple medical problems obesity. Patient is not willing to go to subacute rehab homecare will be set up for the patient and patient will be discharged today PHYSICAL EXAMINATION: GENERAL: The patient is alert and oriented x3, not in any acute distress. Morbidly obese HEENT: Pupils are round and equally reacting to light. EOMI. No scleral icterus. No conjunctival pallor. Normocephalic, atraumatic. No pharyngeal erythema. No thyromegaly. CARDIOVASCULAR: S1 and S2 present. No murmurs. There is S3, JVD improved PULMONARY: Patient has good air entry crackles improved ABDOMEN: Soft, nontender, nondistended, normoactive bowel sounds. No palpable organomegaly. MUSCULOSKELETAL: No joint swelling or deformity. EXTREMITIES: No cyanosis, clubbing, does have pitting pedal edema, improved significantly. NEUROLOGICAL: Gross neurological examination did not reveal any focal deficits. SKIN: No rashes. 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 -Atrial fibrillation patient is presently rate controlled on Coumadin, metoprolol -Type 2 diabetes mellitus patient will be resumed on home regimen titrate as needed -Hypertension -Hyperlipidemia Patient Condition at Discharge: Fair Plan - Discharge Summary Discharge Rx Participant: No New Discharge Prescriptions: New Furosemide [Lasix] 80 mg PO BID@0900,1600 #60 tab Metoprolol Tartrate [Lopressor] 150 mg PO BID #60 tab Tamsulosin [Flomax] 0.4 mg PO PC-BRKFST #30 cap.er.24h Continue Acarbose [Precose] 25 mg PO TID Dorzolamide-Timolol 2%/0.5% [dorzolamide-Timolol 2%/0.5%] 1 drop LEFT EYE BID Doxazosin Mesylate 2 mg PO HS Ergocalciferol (Vitamin D2) [Vitamin D2] 50,000 unit PO Q15D Ferrous Sulfate [Iron (65 MG Elemental)] 325 mg PO DAILY glipiZIDE [Glucotrol] 10 mg PO AC-BID Insulin Glargine [Lantus] 0 unit SQ HS Latanoprost [Xalatan 0.005%] 1 drop BOTH EYES HS Timolol 0.5% Ophth Soln [Timoptic 0.5% Ophth Soln] 1 drop BOTH EYES BID Warfarin Sodium [Coumadin] 5 mg PO HS Discontinued Carvedilol [Coreg] 12.5 mg PO BID cloNIDine HCL [Catapres] 0.2 mg PO BID Furosemide [Lasix] 40 mg PO BID hydrALAZINE HCL [Apresoline] 25 mg PO TID Discharge Medication List Acarbose [Precose] 25 mg PO TID 03/22/18 [History] Dorzolamide-Timolol 2%/0.5% [dorzolamide-Timolol 2%/0.5%] 1 drop LEFT EYE BID [History] Doxazosin Mesylate 2 mg PO HS 03/22/18 [History] Ergocalciferol (Vitamin D2) [Vitamin D2] 50,000 unit PO Q15D 03/22/18 [History] Ferrous Sulfate [Iron (65 MG Elemental)] 325 mg PO DAILY 03/22/18 [History] Insulin Glargine [Lantus] 0 unit SQ HS 03/22/18 [History] Latanoprost [Xalatan 0.005%] 1 drop BOTH EYES HS 03/22/18 [History] Timolol 0.5% Ophth Soln [Timoptic 0.5% Ophth Soln] 1 drop BOTH EYES BID [History] Warfarin Sodium [Coumadin] 5 mg PO HS 03/22/18 [History] glipiZIDE [Glucotrol] 10 mg PO AC-BID 03/22/18 [History] Furosemide [Lasix] 80 mg PO BID@0900,1600 #60 tab 03/29/18 [Rx] Metoprolol Tartrate [Lopressor] 150 mg PO BID #60 tab 03/29/18 [Rx] Tamsulosin [Flomax] 0.4 mg PO PC-BRKFST #30 cap.er.24h 03/29/18 [Rx] Follow up Appointment(s)/Referral(s): [facility], [NON-STAFF] - As Needed Ronald Malin MD [Primary Care Provider] - 1-2 days Alfredo Jain MD [STAFF PHYSICIAN] - 04/26/18 3:00 pm (Thursday [facility]) Patient Instructions/Handouts: A-fib (Atrial Fibrillation) (DC) Discharge Disposition: HOME WITH HOME HEALTH SERVICES
--- NOTE | 2018-03-29 20:17 | PN ---
PROGRESS NOTE Patient is seen for followup for acute kidney injury on chronic kidney disease. He was also volume overloaded on initial admission. He has been maintained on IV Lasix. Patient also had significant urine retention and currently has an indwelling Bennett catheter. His creatinine improved with serum creatinine down to 3.6 mg/dL today from peak of 4.0. PHYSICAL EXAMINATION: Today, this morning, blood pressure was 161/89, heart rate 105 per minute. Patient is afebrile. Examination of the heart: S1, S2. Examination lungs: Bilateral breath sounds are heard. Decreased breath sounds bases. Abdomen is soft, nontender, obese. Examination lower extremities shows chronic skin changes. Edema 1+ bilaterally. DOCTOR OF PODIATRY exam is grossly intact. LABS SHOW: Sodium 141, potassium 4.5, BUN 74, serum creatinine 3.6, INR was 2.0. ASSESSMENT: 1. Acute kidney injury and cardiorenal as well as secondary to urine retention, currently with indwelling Bennett catheter with good urine output and improvement in renal function with continued diuresis. Lasix has been switched to p.o. 2. Congestive heart failure, acute on top of chronic, systolic. 3. Cardiomyopathy, ejection fraction 30-35%. 4. Chronic kidney disease, NKF stage IV to V, most likely secondary to underlying nephrosclerosis. UA did have 2+ protein. The patient likely has an underlying component of diabetic nephropathy. PLAN: The patient is stable for discharge from Nephrology standpoint. He needs to follow up as outpatient with his forensic accountant. MMODL / IJN: [id number] /
== END 2018-03-29 17:09 | disposition home health service (06) | DRG 291 ==
LOC: EC 19:26 → 6SEL 20:18
PROVIDERS: ADMIT Hospitalist; ATTEND Hospitalist
DX: I13.2 Hypertensive heart and chronic kidney disease with heart failure and with stage 5 chronic kidney disease, or end stage renal disease (principal); I50.23 Acute on chronic systolic (congestive) heart failure; J96.01 Acute respiratory failure with hypoxia; J18.9 Pneumonia, unspecified organism; N18.5 Chronic kidney disease, stage 5; D68.9 Coagulation defect, unspecified; I48.1 Persistent atrial fibrillation; Z68.41 Body mass index [BMI] 40.0-44.9, adult; E87.2 Acidosis; N17.9 Acute kidney failure, unspecified; E11.21 Type 2 diabetes mellitus with diabetic nephropathy; E78.5 Hyperlipidemia, unspecified; N35.9 Urethral stricture, unspecified; E66.01 Morbid (severe) obesity due to excess calories; R33.8 Other retention of urine; N40.1 Benign prostatic hyperplasia with lower urinary tract symptoms; I48.2 Chronic atrial fibrillation; T45.511A Poisoning by anticoagulants, accidental (unintentional), initial encounter; E11.22 Type 2 diabetes mellitus with diabetic chronic kidney disease; D50.9 Iron deficiency anemia, unspecified; D63.1 Anemia in chronic kidney disease; I25.10 Atherosclerotic heart disease of native coronary artery without angina pectoris; I42.9 Cardiomyopathy, unspecified; Z79.899 Other long term (current) drug therapy; Z98.49 Cataract extraction status, unspecified eye; Z79.01 Long term (current) use of anticoagulants; Z80.1 Family history of malignant neoplasm of trachea, bronchus and lung; Z85.828 Personal history of other malignant neoplasm of skin; Z90.89 Acquired absence of other organs; Z80.41 Family history of malignant neoplasm of ovary; Z79.4 Long term (current) use of insulin
CPT/HCPCS: 71045; 71046; 80048; 81001; 82728; 83036; 83540; 83550; 83735; 83880; 85027; 85610; 87040; 87502; 93306; 94640; 94760; 96365; 96366; 96368; 99285